=== PATIENT | female | born 1950 | race Caucasian/White ===

== ENCOUNTER 2016-12-26 05:34 | Inpatient (IN) | payer BC, MEDICARE ==
[2016-12-26] MEDS ORDERED: Scopolamine 1.5 MG Transdermal Patch TOP SCH (06:00)
[2016-12-26] MEDS ORDERED: Gabapentin 300 MG Cap PO ONE (06:00)
[2016-12-26] MEDS: Lactated Ringers 1,000 ML IV SCH (06:04)
[2016-12-26] MEDS ORDERED: Thrombin (Bovine) 5,000 Unit Kit ONE (06:58)
[2016-12-26] MEDS ORDERED: fentaNYL 250 MCG/5 ML SDV ONE ×2 (07:15→10:00)
[2016-12-26] MEDS ORDERED: Propofol 200 MG/20 ML SDV ONE ×4 (07:16→10:32)
[2016-12-26] MEDS ORDERED: Ondansetron 4 MG/2 ML SDV ONE (07:16)
[2016-12-26] MEDS ORDERED: Succinylcholine 200 MG/10 ML MDV ONE (07:16)
[2016-12-26] MEDS ORDERED: Rocuronium 50 MG/5 ML Vial ONE (07:16)
[2016-12-26] MEDS ORDERED: Dexamethasone 4 MG/ML SDV ONE (07:16)
[2016-12-26] MEDS ORDERED: Clindamycin Phosphate 900 MG in Sodium Chloride 0.9% 100 ML IV ONE (07:30)
[2016-12-26] MEDS ORDERED: Ropivacaine 49.25 ML, Ketorolac 30 MG, EPINEPHrine 0.5 MG, cloNIDine 80 MCG, Sodium Chl... INJECT ONE ×5 (07:45)
[2016-12-26] MEDS ORDERED: Ketamine 500 MG/5 ML MDV IV SCH (07:45)
[2016-12-26] MEDS: Tranexamic Acid 800 MG in Sodium Chloride 0.9% 50 ML IV SCH ×2 (07:49→11:48)
[2016-12-26] MEDS ORDERED: ePHEDrine 50 MG/ML SDV ONE (08:17)
[2016-12-26] MEDS ORDERED: Lactated Ringers 1,000 ML ONE (08:32)
[2016-12-26] MEDS ORDERED: Phenylephrine 1% 10 MG/ML SDV ONE (08:36)
[2016-12-26] MEDS: Povidone-Iodine 10% Soln 118.25 ML Bottle ONE ×2 (08:39→11:00)
[2016-12-26] MEDS ORDERED: Vancomycin 1 GM SDV ONE (10:55)
[2016-12-26] MEDS ORDERED: Glycopyrrolate 0.2 MG/ML 5 ML MDV ONE (11:00)
[2016-12-26] MEDS ORDERED: Neostigmine Methylsulfate 1 MG/ML 5 ML Syringe ONE (11:00)
[2016-12-26] MEDS ORDERED: Acetaminophen 1,000 MG in Premix Bag 1 BAG IV ONE ×2 (11:26→13:45)
[2016-12-26] MEDS ORDERED: Magnesium Hydroxide 400 MG/5 ML Susp 30 ML Cup PO PRN (11:26)
[2016-12-26] MEDS ORDERED: Diazepam 5 MG Tab PO PRN (11:26)
[2016-12-26] MEDS ORDERED: Ondansetron 4 MG/2 ML SDV IVPUSH PRN (11:26)
[2016-12-26] MEDS ORDERED: Zolpidem 5 MG Tab PO PRN (11:26)
[2016-12-26] MEDS ORDERED: Naloxone 0.4 MG/ML SDV IVPUSH PRN (11:26)
--- NOTE | 2016-12-26 12:35 | OR ---
DATE OF PROCEDURE: 12/26/2016 PREOPERATIVE DIAGNOSES: 1. Lumbar spondylolisthesis at L4-5. 2. Lumbar stenosis at L4-5. 3. Lumbar stenosis at L5-S1. 4. Lumbar radiculopathy at L4-5 and L5-S1. POSTOPERATIVE DIAGNOSES: 1. Lumbar spondylolisthesis at L4-5. 2. Lumbar stenosis at L4-5. 3. Lumbar stenosis at L5-S1. 4. Lumbar radiculopathy at L4-5 and L5-S1. PROCEDURES PERFORMED: 1. Posterolateral fusion at L4-L5. 2. Posterolateral fusion at L5-S1. 3. Segmental instrumentation at L4-5 and L5-S1. 4. Decompression done, required an additional fusion at L4-5 and L5-S1. 5. Use of Signify allograft in combination with autograft obtained from laminectomies and posterolateral gutter. 6. Use of operating microscope. CABLE DRILLER: CAMERON Fountain. Physician assistant education director, CAMERON Fountain, played an essential role in assisting in this case, helping to position the patient, retract structures as needed, as well as suturing and cutting sutures as indicated. Her presence improved patient's safety and decreased operative time. ANESTHESIA: General endotracheal intubation. FLUID: Lactated Ringer solution. ESTIMATED BLOOD LOSS: 50 mL. COMPLICATIONS: None. SPECIMEN: None. DISCHARGE DISPOSITION: Stable to PACU. HISTORY AND INDICATIONS FOR THE PROCEDURE: The patient was seen preoperatively by myself in the clinic. She had failed nonoperative treatment. Preoperative imaging confirmed the above-mentioned diagnosis. Risks and benefits of the procedure were explained to the patient. Informed consent was obtained. DESCRIPTION OF PROCEDURE: The patient was seen preoperatively by myself and the Anesthesia staff at the preoperative holding area, where the operative site was marked. She was brought to the operative suite by the Anesthesia staff, where general anesthesia was administered. Neuromonitoring leads were placed and normal throughout the case. Sterile Buckner catheter was placed. The operating microscope was draped sterilely. The patient was then flipped onto a David table. All extremities were found to be well padded. The bed was then flexed. The patient was then prepped and draped in a sterile manner. Time-out was called identifying the correct patient, the correct procedure, the correct site, and that the antibiotics had been begun within the appropriate period of time. Lateral fluoroscopy used to identify the pedicles of L4 through S1. A midline incision was made over the spinous processes of L3 through S1 and carried down to the deep fascia. Bleeding during the case was controlled with Bovie electrocautery, Aquamantys 5.0 unit, and bipolar electrocautery. Cerebellars were initially used for retraction. I then used Bovie electrocautery unit as well as a Reed elevator to go down over the spinous processes, lamina, transverse processes, and sacral ala of L4-S1. I then inserted Versa-Trac retractor blades for retraction. I then clipped the soft tissues off. I then drilled down the facets at L4-5 and L5-S1, and the superior facet of L4. I chose a starting part in the middle of the transverse process, starting on the right side. Used PediGuard and then pedicle probe, followed by tap, followed by pedicle probe, followed by screw, and then confirmed placement with fluoroscopy. This was done on the left and then the right. 6.5 x 50 mm screws were used at L4 and L5 and then at S1 they were 6.5 x 45 mm screws. After this was completed, I then was able to remove the lamina en bloc due to the pars defect at L4 and then I drilled down bilaterally on the lamina of L5 using a Clamshell technique. Unfortunately, I used a Reed elevator to crack the remaining portion of the lamina and bring it off, there were adhesions bilaterally from bone on to the dura causing large durotomies bilaterally. I then used the operating microscope and with many Greenfield-Ab sutures in both an interrupted and continuous manner, repaired the defects. We performed several Valsalva maneuvers to identify additional leaks, one of which was in the axilla of the left L5 nerve root. There was very little dura in some areas due to the adhesion to the bone and ligamentum flavum. However, I was able to finally perform a Valsalva with no cerebrospinal fluid leak. After this had been accomplished, I then copiously irrigated with 3 L of Betadine infused irrigation. We applied our Tulips to our screws and then placed 50 mm rods and then placed our set screws and torqued them in specifications. I then decorticated the left-side transverse process and sacral ala, and then used bone graft which had been run through a Emulate bone mill mixed with Signify allograft from [employer] and applied that in the posterolateral gutter. I had also performed facetectomies on the right at L4-5 and L5-S1 to completely decompress the nerve roots as that was the area where the patient was having right-sided pain. After this had been accomplished, I then irrigated again and I gently tamped the dura with a Ray-Lam and then applied DuraGen, followed by DuraSeal, followed by another Valsalva which was negative for any cerebrospinal fluid leak. We then applied some FloSeal, some vancomycin and Gelfoam powder, and then closed the deep fascia with #1 STRATAFIX, followed by injection with local anesthetic solution, followed by another liter of Betadine infused irrigation, followed by #2 STRATAFIX and then 3-0 STRATAFIX, followed by sterile dressing. The patient was then flipped into the hospital bed and taken to the PACU in a stable condition. Please note that we did test the screws after placement, the lowest one tested at 17, which was left L4; and the remainder were 25. Chidi Knowles DO /[id number]
[2016-12-26] MEDS: HYDROmorphone 1 MG/ML Syringe IVPUSH PRN ×2 (13:55→19:48)
[2016-12-26] MEDS: VERIFY SCOPOLAMINE PATCH TOP SCH (14:19)
[2016-12-26] MEDS: oxyCODONE 5 MG Tab PO PRN (16:09)
[2016-12-27] MEDS: Lactated Ringers 1,000 ML IV SCH (00:06)
[2016-12-27] MEDS: oxyCODONE 5 MG Tab PO PRN ×2 (00:06→08:56)
[2016-12-27] MEDS: Gabapentin 100 MG Cap PO SCH (08:17)
[2016-12-27] MEDS: VERIFY SCOPOLAMINE PATCH TOP SCH (08:17)
[2016-12-27] MEDS: GLUCOSAMINE SULFATE 750 MG PO SCH (08:17)
[2016-12-27] MEDS: Hydrochlorothiazide/Triamterene 25-37.5 MG Cap PO SCH ×2 (08:17→09:46)
[2016-12-27] MEDS: Pantoprazole 40 MG Tab.CR PO SCH (08:17)
[2016-12-27] MEDS: ZINC PO SCH (08:18)
[2016-12-27] MEDS: Lisinopril 2.5 MG Tab PO SCH (08:18)
[2016-12-27] MEDS: Cholecalciferol (Vitamin D3) 1,000 Unit Tab PO SCH (08:18)
[2016-12-27] MEDS: Vitamin B Complex Tab PO SCH (08:18)
[2016-12-27] MEDS ORDERED: Docusate Sodium Liquid 100 MG/10 ML UD Cup PO PRN (10:49)
[2016-12-27] MEDS: Polyethylene Glycol 3350 Powder 17 GM Packet PO SCH (11:31)
[2016-12-27] MEDS: Sennosides 8.6 MG Tab PO SCH ×2 (11:31→20:39)
[2016-12-27] MEDS: Acetaminophen/oxyCODONE 325-5 MG Tab PO PRN ×2 (11:35→18:07)
[2016-12-28] MEDS: Acetaminophen/oxyCODONE 325-5 MG Tab PO PRN ×4 (00:24→18:21)
[2016-12-28] MEDS: Pantoprazole 40 MG Tab.CR PO SCH (08:23)
[2016-12-28] MEDS: Bisacodyl 5 MG Tab PO SCH (08:23)
[2016-12-28] MEDS: Polyethylene Glycol 3350 Powder 17 GM Packet PO SCH (08:24)
[2016-12-28] MEDS: Gabapentin 100 MG Cap PO SCH (08:24)
[2016-12-28] MEDS: Hydrochlorothiazide/Triamterene 25-37.5 MG Cap PO SCH (08:24)
[2016-12-28] MEDS: Aspirin 81 MG Tab.EC PO SCH (08:24)
[2016-12-28] MEDS: GLUCOSAMINE SULFATE 750 MG PO SCH (08:24)
[2016-12-28] MEDS: Lisinopril 2.5 MG Tab PO SCH (08:25)
[2016-12-28] MEDS: Cholecalciferol (Vitamin D3) 1,000 Unit Tab PO SCH (08:25)
[2016-12-28] MEDS: Vitamin B Complex Tab PO SCH (08:25)
[2016-12-28] MEDS: Sennosides 8.6 MG Tab PO SCH ×2 (08:25→21:13)
[2016-12-28] MEDS: VERIFY SCOPOLAMINE PATCH TOP SCH (08:25)
[2016-12-28] MEDS: ZINC PO SCH (08:26)
--- NOTE | 2016-12-28 10:01 | PCM.PN ---
- General Info Date of Service: 12/27/16 Admission Dx/Problem (Free Text): Patient is status postop day 1. She is doing very well. Patient does state that she has headache when she sits up. She states it gets better when she lays down. She did have one episode of nausea last night but is improved. She states that she has no other issues at this time. Functional Status: Reports: Pain Controlled, Tolerating Diet, Ambulating, Urinating - Review of Systems General: Reports: No Symptoms - Patient Data Vitals - Most Recent: Last Vital Signs Temp 37.6 C 12/28/16 07:31 Pulse 97 12/28/16 07:31 Resp 16 12/28/16 07:31 BP 134/73 12/28/16 08:25 Pulse Ox 96 12/28/16 07:31 Weight - Most Recent: 179 lb 6.4 oz I&O - Last 24 Hours: Intake & Output 12/27/16 12/28/16 12/28/16 22:59 06:59 14:59 Intake Total 1140 700 Output Total 600 500 300 Balance 540 200 -300 Med Orders - Current: Current Medications Al Hydroxide/Mg Hydroxide (Mag-Al Plus) 30 ml PO Q4H PRN PRN Reason: Indigestion Aspirin (Halfprin) 81 mg PO DAILY [facility] Last Admin: 12/28/16 08:24 Dose: 81 mg Bisacodyl (Dulcolax) 5 mg PO DAILY [facility] Last Admin: 12/28/16 08:23 Dose: 5 mg Cholecalciferol (Vitamin D3) 1,000 units PO DAILY [facility] Last Admin: 12/28/16 08:25 Dose: 1,000 units Diazepam (Valium.) 5 mg PO Q6H PRN PRN Reason: Spasms Docusate Sodium (Colace 50 Mg/5 Ml Liquid) 100 mg PO BID PRN PRN Reason: Constipation Gabapentin (Neurontin) 100 mg PO DAILY [facility] Last Admin: 12/28/16 08:24 Dose: 100 mg Lactated Ringer's (Ringers, Lactated) 1,000 mls @ 100 mls/hr IV ASDIRECTED [facility] Last Admin: 12/27/16 00:06 Dose: 100 mls/hr Lisinopril (Prinivil) 2.5 mg PO DAILY [facility] Last Admin: 11/16/17 08:25 Dose: 2.5 mg Magnesium Hydroxide (Milk Of Magnesia) 30 ml PO BID PRN PRN Reason: Constipation Naloxone HCl (Narcan) 0.2 mg IVPUSH ONETIME PRN PRN Reason: Oversedation Glucosamine Sulfate (750 Mg (Ptom)) 0 mg PO DAILY [facility] Last Admin: 12/28/16 08:24 Dose: Not Given Zinc (Ptom) 1 tab PO DAILY [facility] Last Admin: 12/28/16 08:26 Dose: Not Given Verify Scopolamine (Patch) 0 each TOP DAILY [facility] Last Admin: 12/28/16 08:25 Dose: Not Given Ondansetron HCl (Zofran) 8 mg IVPUSH Q4H PRN PRN Reason: Nausea/Vomiting Last Admin: 12/27/16 08:56 Dose: 8 mg Oxycodone/Acetaminophen (Percocet 325-5 Mg) 2 tab PO Q4H PRN PRN Reason: Pain Last Admin: 12/28/16 07:28 Dose: 2 tab Pantoprazole Sodium (Protonix) 40 mg PO ACBREAKFAST [facility] Last Admin: 12/28/16 08:23 Dose: 40 mg Polyethylene Glycol (Miralax) 17 gm PO DAILY [facility] Last Admin: 12/28/16 08:24 Dose: 17 gm Scopolamine (Transderm-Scop) 1.5 mg TOP Q72H [facility] Stop: 12/29/16 04:00 Last Admin: 12/26/16 06:04 Dose: 1.5 mg Senna (Senna) 8.6 mg PO BID PRN PRN Reason: Constipation Senna (Senna) 8.6 mg PO BID [facility] Last Admin: 12/28/16 08:25 Dose: 8.6 mg Triamterene/HCTZ (Dyazide 25-37.5 Mg) 1 each PO DAILY [facility] Last Admin: 12/28/16 08:24 Dose: 1 each Vitamin B Complex (Vitamin B Complex) 1 each PO DAILY [facility] Last Admin: 12/28/16 08:25 Dose: 1 each Zolpidem Tartrate (Ambien) 5 mg PO BEDTIME PRN PRN Reason: Sleep Discontinued Medications Ropivacaine 49.25 ml/Ketorolac Tromethamine 30 mg/Epinephrine HCl 0.5 mg/ Clonidine HCl 80 mcg/ Sodium Chloride 48.45 ml 0 ml INJECT ONETIME ONE Stop: 12/26/16 07:46 Last Admin: 12/26/16 10:02 Dose: 100 ml Dexamethasone (Dexamethasone) Confirm Administered Dose 4 mg .ROUTE .STK-MED ONE Stop: 12/26/16 07:17 Ephedrine Sulfate (Ephedrine Sulfate) Confirm Administered Dose 50 mg .ROUTE .STK-MED ONE Stop: 12/26/16 08:18 Fentanyl (Sublimaze) Confirm Administered Dose 250 mcg .ROUTE .STK-MED ONE Stop: 12/26/16 07:16 Fentanyl (Sublimaze) Confirm Administered Dose 250 mcg .ROUTE .STK-MED ONE Stop: 12/26/16 10:01 Gabapentin (Neurontin) 300 mg PO ONETIME ONE Stop: 12/26/16 06:01 Last Admin: 12/26/16 06:03 Dose: 300 mg Glycopyrrolate (Robinul) Confirm Administered Dose 1 mg .ROUTE .STK-MED ONE Stop: 12/26/16 11:01 Hydromorphone HCl (Dilaudid) 1 mg IVPUSH Q2H PRN PRN Reason: Pain Stop: 12/27/16 11:27 Last Admin: 12/26/16 19:48 Dose: 1 mg Clindamycin Phosphate 900 mg/ (Sodium Chloride) 106 mls @ 200 mls/hr IV ONETIME ONE Stop: 12/26/16 08:01 Last Admin: 12/26/16 07:27 Dose: 200 mls/hr Tranexamic Acid 800 mg/ Sodium (Chloride) 58 mls @ 232 mls/hr IV Q3H [facility] Stop: 12/26/16 10:59 Last Admin: 12/26/16 11:48 Dose: 232 mls/hr Ketamine HCl 100 mg/ Sodium (Chloride) 100 mls @ 14 mls/hr IV ASDIRECTED [facility] Lactated Ringer's (Ringers, Lactated) Confirm Administered Dose 1,000 mls @ as directed .ROUTE .STK-MED ONE Stop: 12/26/16 08:33 Acetaminophen 1,000 mg/ Premix 100 mls @ 400 mls/hr IV NOW ONE Stop: 12/26/16 11:40 Last Admin: 12/26/16 14:18 Dose: Not Given Clindamycin Phosphate 600 mg/ (Sodium Chloride) 54 mls @ 100 mls/hr IV Q8H [facility] Stop: 12/27/16 04:03 Last Admin: 12/26/16 14:18 Dose: Not Given Clindamycin Phosphate 600 mg/ (Sodium Chloride) 54 mls @ 100 mls/hr IV Q8H [facility] Stop: 12/27/16 06:33 Last Admin: 12/27/16 05:36 Dose: 100 mls/hr Acetaminophen 1,000 mg/ Premix 100 mls @ 400 mls/hr IV NOW ONE Stop: 12/26/16 13:59 Last Admin: 12/26/16 14:19 Dose: 400 mls/hr Ketamine HCl (Ketalar) 23 mg IV ASDIRECTED [facility] Neostigmine Methylsulfate (Neostigmine) Confirm Administered Dose 5 mg .ROUTE .STK-MED ONE Stop: 12/26/16 11:01 Ondansetron HCl (Zofran) Confirm Administered Dose 4 mg .ROUTE .STK-MED ONE Stop: 12/26/16 07:17 Oxycodone HCl (Oxycodone) 10 mg PO Q4H PRN PRN Reason: Pain Stop: 12/27/16 11:27 Last Admin: 12/27/16 08:56 Dose: 10 mg Phenylephrine HCl (Lon-Synephrine) Confirm Administered Dose 10 mg .ROUTE .STK- MED ONE Stop: 12/26/16 08:37 Povidone Iodine (Betadine 10% Soln) Confirm Administered Dose 1 ml .ROUTE .STK- MED ONE Stop: 12/26/16 06:59 Last Admin: 12/26/16 11:00 Dose: 30 ml Propofol (Diprivan 20 Ml) Confirm Administered Dose 200 mg .ROUTE .STK-MED ONE Stop: 12/26/16 07:17 Propofol (Diprivan 20 Ml) Confirm Administered Dose 400 mg .ROUTE .STK-MED ONE Stop: 12/26/16 07:49 Propofol (Diprivan 20 Ml) Confirm Administered Dose 200 mg .ROUTE .STK-MED ONE Stop: 12/26/16 09:32 Propofol (Diprivan 20 Ml) Confirm Administered Dose 200 mg .ROUTE .STK-MED ONE Stop: 12/26/16 10:33 Rocuronium [place] (Zemuron) Confirm Administered Dose 50 mg .ROUTE .STK-MED ONE Stop: 12/26/16 07:17 Sodium Chloride (Normal Saline) 250 ml IV .STK-MED ONE Stop: 12/26/16 08:21 Last Admin: 12/26/16 08:20 Dose: 250 ml Succinylcholine Chloride (Quelicin) Confirm Administered Dose 200 mg .ROUTE .STK -MED ONE Stop: 12/26/16 07:17 Thrombin (Thrombin-Jmi) Confirm Administered Dose 15,000 unit .ROUTE .STK-MED ONE Stop: 12/26/16 06:59 Last Admin: 12/26/16 08:38 Dose: 10,000 unit Vancomycin HCl (Vancomycin) Confirm Administered Dose 1 gm .ROUTE .STK-MED ONE Stop: 12/26/16 10:56 Last Admin: 12/26/16 11:00 Dose: 1 gm - Exam General: Alert, Oriented Back Exam: Normal Inspection Extremities: Normal Inspection, No Pedal Edema, Normal Capillary Refill Peripheral Pulses: 2+: Dorsalis Pedis (L), Dorsalis Pedis (R) Skin: Warm, Dry, Intact Wound/Incisions: Healing Well, Dressing Dry and Intact Neurological: No New Focal Deficit, Strength Equal Bilateral, Reflexes Equal Bilateral Psy/Mental Status: Alert - Problem List Review Problem List Initiated/Reviewed/Updated: Yes - My Orders Last 24 Hours: My Active Orders 12/27/16 09:00 Cholecalciferol (Vitamin D3) [Vitamin D3] 1,000 units PO DAILY Gabapentin [Neurontin] 100 mg PO DAILY Glucosamine Sulfate [Glucosamine Sulfate] 0 mg PO DAILY HCTZ/Triamterene [Dyazide 25-37.5 MG] 1 each PO DAILY Lisinopril [Prinivil] 2.5 mg PO DAILY Vitamin B Complex 1 each PO DAILY Zinc [Zinc] 1 tab PO DAILY 12/27/16 10:49 Docusate Sodium [Colace 50 MG/5 ML Liquid] 100 mg PO BID PRN 12/27/16 11:00 Polyethylene Glycol 3350 [MiraLAX] 17 gm PO DAILY Sennosides [Senna] 8.6 mg PO BID 12/27/16 11:27 Acetaminophen/oxyCODONE [Percocet 325-5 MG] 2 tab PO Q4H PRN 12/28/16 09:00 Aspirin [Halfprin] 81 mg PO DAILY Bisacodyl [Dulcolax] 5 mg PO DAILY 12/31/16 05:15 BASIC METABOLIC PANEL,BMP [CHEM] DAILY CBC WITH AUTO DIFF [HEME] DAILY 01/01/17 05:15 BASIC METABOLIC PANEL,BMP [CHEM] DAILY CBC WITH AUTO DIFF [HEME] DAILY 01/02/17 05:15 BASIC METABOLIC PANEL,BMP [CHEM] DAILY CBC WITH AUTO DIFF [HEME] DAILY 01/03/17 05:15 BASIC METABOLIC PANEL,BMP [CHEM] DAILY CBC WITH AUTO DIFF [HEME] DAILY 01/04/17 05:15 BASIC METABOLIC PANEL,BMP [CHEM] DAILY CBC WITH AUTO DIFF [HEME] DAILY - Plan Plan:: At this time we will continue to monitor the patient's headaches. We want her lying flat. She can do PT but we do not want her sitting up in a chair at this time. We want to increase her fluids. He want to make sure that she has a bowel regimen so she does not strain. Patient was in agreement with this plan.
--- NOTE | 2016-12-28 10:02 | PCM.PN ---
- General Info Date of Service: 12/28/16 Admission Dx/Problem (Free Text): Patient is status postop day 3 of a lumbar fusion. She is doing very well. Patient continues to have slight headaches when she does stand up and ambulate. Otherwise she is having no other issues. She is tolerating her diet better. Pain is under control with oral pain medication at this time. Functional Status: Reports: Pain Controlled, Tolerating Diet, Ambulating - Patient Data Vitals - Most Recent: Last Vital Signs Temp 37.6 C 12/28/16 07:31 Pulse 97 12/28/16 07:31 Resp 16 12/28/16 07:31 BP 134/73 12/28/16 08:25 Pulse Ox 96 12/28/16 07:31 Weight - Most Recent: 179 lb 6.4 oz I&O - Last 24 Hours: Intake & Output 12/27/16 12/28/16 12/28/16 22:59 06:59 14:59 Intake Total 1140 700 Output Total 600 500 300 Balance 540 200 -300 Med Orders - Current: Current Medications Al Hydroxide/Mg Hydroxide (Mag-Al Plus) 30 ml PO Q4H PRN PRN Reason: Indigestion Aspirin (Halfprin) 81 mg PO DAILY [facility] Last Admin: 12/28/16 08:24 Dose: 81 mg Bisacodyl (Dulcolax) 5 mg PO DAILY [facility] Last Admin: 12/28/16 08:23 Dose: 5 mg Cholecalciferol (Vitamin D3) 1,000 units PO DAILY [facility] Last Admin: 12/28/16 08:25 Dose: 1,000 units Diazepam (Valium.) 5 mg PO Q6H PRN PRN Reason: Spasms Docusate Sodium (Colace 50 Mg/5 Ml Liquid) 100 mg PO BID PRN PRN Reason: Constipation Gabapentin (Neurontin) 100 mg PO DAILY [facility] Last Admin: 12/28/16 08:24 Dose: 100 mg Lactated Ringer's (Ringers, Lactated) 1,000 mls @ 100 mls/hr IV ASDIRECTED [facility] Last Admin: 12/27/16 00:06 Dose: 100 mls/hr Lisinopril (Prinivil) 2.5 mg PO DAILY [facility] Last Admin: 12/28/16 08:25 Dose: 2.5 mg Magnesium Hydroxide (Milk Of Magnesia) 30 ml PO BID PRN PRN Reason: Constipation Naloxone HCl (Narcan) 0.2 mg IVPUSH ONETIME PRN PRN Reason: Oversedation Glucosamine Sulfate (750 Mg (Ptom)) 0 mg PO DAILY [facility] Last Admin: 12/28/16 08:24 Dose: Not Given Zinc (Ptom) 1 tab PO DAILY [facility] Last Admin: 12/28/16 08:26 Dose: Not Given Verify Scopolamine (Patch) 0 each TOP DAILY [facility] Last Admin: 12/28/16 08:25 Dose: Not Given Ondansetron HCl (Zofran) 8 mg IVPUSH Q4H PRN PRN Reason: Nausea/Vomiting Last Admin: 12/27/16 08:56 Dose: 8 mg Oxycodone/Acetaminophen (Percocet 325-5 Mg) 2 tab PO Q4H PRN PRN Reason: Pain Last Admin: 12/28/16 07:28 Dose: 2 tab Pantoprazole Sodium (Protonix) 40 mg PO ACBREAKFAST [facility] Last Admin: 12/28/16 08:23 Dose: 40 mg Polyethylene Glycol (Miralax) 17 gm PO DAILY [facility] Last Admin: 12/28/16 08:24 Dose: 17 gm Scopolamine (Transderm-Scop) 1.5 mg TOP Q72H [facility] Stop: 12/29/16 04:00 Last Admin: 12/26/16 06:04 Dose: 1.5 mg Senna (Senna) 8.6 mg PO BID PRN PRN Reason: Constipation Senna (Senna) 8.6 mg PO BID [facility] Last Admin: 12/28/16 08:25 Dose: 8.6 mg Triamterene/HCTZ (Dyazide 25-37.5 Mg) 1 each PO DAILY [facility] Last Admin: 12/28/16 08:24 Dose: 1 each Vitamin B Complex (Vitamin B Complex) 1 each PO DAILY [facility] Last Admin: 12/28/16 08:25 Dose: 1 each Zolpidem Tartrate (Ambien) 5 mg PO BEDTIME PRN PRN Reason: Sleep Discontinued Medications Ropivacaine 49.25 ml/Ketorolac Tromethamine 30 mg/Epinephrine HCl 0.5 mg/ Clonidine HCl 80 mcg/ Sodium Chloride 48.45 ml 0 ml INJECT ONETIME ONE Stop: 12/26/16 07:46 Last Admin: 12/26/16 10:02 Dose: 100 ml Dexamethasone (Dexamethasone) Confirm Administered Dose 4 mg .ROUTE .STK-MED ONE Stop: 12/26/16 07:17 Ephedrine Sulfate (Ephedrine Sulfate) Confirm Administered Dose 50 mg .ROUTE .STK-MED ONE Stop: 12/26/16 08:18 Fentanyl (Sublimaze) Confirm Administered Dose 250 mcg .ROUTE .STK-MED ONE Stop: 12/26/16 07:16 Fentanyl (Sublimaze) Confirm Administered Dose 250 mcg .ROUTE .STK-MED ONE Stop: 12/26/16 10:01 Gabapentin (Neurontin) 300 mg PO ONETIME ONE Stop: 12/26/16 06:01 Last Admin: 12/26/16 06:03 Dose: 300 mg Glycopyrrolate (Robinul) Confirm Administered Dose 1 mg .ROUTE .STK-MED ONE Stop: 12/26/16 11:01 Hydromorphone HCl (Dilaudid) 1 mg IVPUSH Q2H PRN PRN Reason: Pain Stop: 12/27/16 11:27 Last Admin: 12/26/16 19:48 Dose: 1 mg Clindamycin Phosphate 900 mg/ (Sodium Chloride) 106 mls @ 200 mls/hr IV ONETIME ONE Stop: 12/26/16 08:01 Last Admin: 12/26/16 07:27 Dose: 200 mls/hr Tranexamic Acid 800 mg/ Sodium (Chloride) 58 mls @ 232 mls/hr IV Q3H [facility] Stop: 12/26/16 10:59 Last Admin: 12/26/16 11:48 Dose: 232 mls/hr Ketamine HCl 100 mg/ Sodium (Chloride) 100 mls @ 14 mls/hr IV ASDIRECTED [facility] Lactated Ringer's (Ringers, Lactated) Confirm Administered Dose 1,000 mls @ as directed .ROUTE .STK-MED ONE Stop: 12/26/16 08:33 Acetaminophen 1,000 mg/ Premix 100 mls @ 400 mls/hr IV NOW ONE Stop: 12/26/16 11:40 Last Admin: 12/26/16 14:18 Dose: Not Given Clindamycin Phosphate 600 mg/ (Sodium Chloride) 54 mls @ 100 mls/hr IV Q8H [facility] Stop: 12/27/16 04:03 Last Admin: 12/26/16 14:18 Dose: Not Given Clindamycin Phosphate 600 mg/ (Sodium Chloride) 54 mls @ 100 mls/hr IV Q8H [facility] Stop: 12/27/16 06:33 Last Admin: 12/27/16 05:36 Dose: 100 mls/hr Acetaminophen 1,000 mg/ Premix 100 mls @ 400 mls/hr IV NOW ONE Stop: 12/26/16 13:59 Last Admin: 12/26/16 14:19 Dose: 400 mls/hr Ketamine HCl (Ketalar) 23 mg IV ASDIRECTED [facility] Neostigmine Methylsulfate (Neostigmine) Confirm Administered Dose 5 mg .ROUTE .STK-MED ONE Stop: 12/26/16 11:01 Ondansetron HCl (Zofran) Confirm Administered Dose 4 mg .ROUTE .STK-MED ONE Stop: 12/26/16 07:17 Oxycodone HCl (Oxycodone) 10 mg PO Q4H PRN PRN Reason: Pain Stop: 12/27/16 11:27 Last Admin: 12/27/16 08:56 Dose: 10 mg Phenylephrine HCl (Lon-Synephrine) Confirm Administered Dose 10 mg .ROUTE .STK- MED ONE Stop: 12/26/16 08:37 Povidone Iodine (Betadine 10% Soln) Confirm Administered Dose 1 ml .ROUTE .STK- MED ONE Stop: 12/26/16 06:59 Last Admin: 12/26/16 11:00 Dose: 30 ml Propofol (Diprivan 20 Ml) Confirm Administered Dose 200 mg .ROUTE .STK-MED ONE Stop: 12/26/16 07:17 Propofol (Diprivan 20 Ml) Confirm Administered Dose 400 mg .ROUTE .STK-MED ONE Stop: 12/26/16 07:49 Propofol (Diprivan 20 Ml) Confirm Administered Dose 200 mg .ROUTE .STK-MED ONE Stop: 12/26/16 09:32 Propofol (Diprivan 20 Ml) Confirm Administered Dose 200 mg .ROUTE .STK-MED ONE Stop: 12/26/16 10:33 Rocuronium [place] (Zemuron) Confirm Administered Dose 50 mg .ROUTE .STK-MED ONE Stop: 12/26/16 07:17 Sodium Chloride (Normal Saline) 250 ml IV .STK-MED ONE Stop: 12/26/16 08:21 Last Admin: 12/26/16 08:20 Dose: 250 ml Succinylcholine Chloride (Quelicin) Confirm Administered Dose 200 mg .ROUTE .STK -MED ONE Stop: 12/26/16 07:17 Thrombin (Thrombin-Jmi) Confirm Administered Dose 15,000 unit .ROUTE .STK-MED ONE Stop: 12/26/16 06:59 Last Admin: 12/26/16 08:38 Dose: 10,000 unit Vancomycin HCl (Vancomycin) Confirm Administered Dose 1 gm .ROUTE .STK-MED ONE Stop: 12/26/16 10:56 Last Admin: 12/26/16 11:00 Dose: 1 gm - Exam General: Alert, Oriented Back Exam: Normal Inspection Extremities: Normal Inspection, Normal Range of Motion, No Pedal Edema, Normal Capillary Refill Peripheral Pulses: 2+: Dorsalis Pedis (L), Dorsalis Pedis (R) Skin: Warm, Dry, Intact Wound/Incisions: Healing Well, Dressing Dry and Intact Neurological: No New Focal Deficit, Strength Equal Bilateral, Reflexes Equal Bilateral Psy/Mental Status: Alert - Problem List Review Problem List Initiated/Reviewed/Updated: Yes - My Orders Last 24 Hours: My Active Orders 12/27/16 10:49 Docusate Sodium [Colace 50 MG/5 ML Liquid] 100 mg PO BID PRN 12/27/16 11:00 Polyethylene Glycol 3350 [MiraLAX] 17 gm PO DAILY Sennosides [Senna] 8.6 mg PO BID 12/27/16 11:27 Acetaminophen/oxyCODONE [Percocet 325-5 MG] 2 tab PO Q4H PRN 12/28/16 09:00 Aspirin [Halfprin] 81 mg PO DAILY Bisacodyl [Dulcolax] 5 mg PO DAILY 12/31/16 05:15 BASIC METABOLIC PANEL,BMP [CHEM] DAILY CBC WITH AUTO DIFF [HEME] DAILY 01/01/17 05:15 BASIC METABOLIC PANEL,BMP [CHEM] DAILY CBC WITH AUTO DIFF [HEME] DAILY 01/02/17 05:15 BASIC METABOLIC PANEL,BMP [CHEM] DAILY CBC WITH AUTO DIFF [HEME] DAILY 01/03/17 05:15 BASIC METABOLIC PANEL,BMP [CHEM] DAILY CBC WITH AUTO DIFF [HEME] DAILY 01/04/17 05:15 BASIC METABOLIC PANEL,BMP [CHEM] DAILY CBC WITH AUTO DIFF [HEME] DAILY - Plan Plan:: A at this time with her continued headaches we are going to put her on bedrest. We want of a Buckner catheter placed in for her to be on bedrest for 2 days. She is to put her head of the bed up no more than 20. We will continue with Percocet for oral pain medication.
[2016-12-29] MEDS: Acetaminophen/oxyCODONE 325-5 MG Tab PO PRN ×5 (02:23→22:34)
[2016-12-29] MEDS: Pantoprazole 40 MG Tab.CR PO SCH (07:41)
[2016-12-29] MEDS: Aluminum Hydroxide/Magnesium Hydroxide/Simethicone Susp 30 ML Cup PO PRN (07:52)
--- NOTE | 2016-12-29 08:49 | PCM.PN ---
- General Info Date of Service: 12/29/16 Admission Dx/Problem (Free Text): Carmen is status postop day 3 of a lumbar fusion. She is doing very well. We continue to keep her bedrest at this time patient denies any headaches. Pain is under control with oral pain medication. We continue to have PT OT on hold until she becomes non-bedrest Functional Status: Reports: Pain Controlled, Tolerating Diet, Urinating - Review of Systems General: Reports: No Symptoms - Patient Data Vitals - Most Recent: Last Vital Signs Temp 36.9 C 12/29/16 07:21 Pulse 86 12/29/16 07:21 Resp 16 12/29/16 07:21 BP 123/73 12/29/16 07:21 Pulse Ox 96 12/29/16 07:21 Weight - Most Recent: 179 lb 6.383 oz I&O - Last 24 Hours: Intake & Output 12/28/16 12/29/16 12/29/16 22:59 06:59 14:59 Intake Total 1300 Output Total 2550 1650 Balance -1250 -1650 Med Orders - Current: Current Medications Al Hydroxide/Mg Hydroxide (Mag-Al Plus) 30 ml PO Q4H PRN PRN Reason: Indigestion Last Admin: 12/29/16 07:52 Dose: 30 ml Aspirin (Halfprin) 81 mg PO DAILY [facility] Last Admin: 12/28/16 08:24 Dose: 81 mg Bisacodyl (Dulcolax) 5 mg PO DAILY [facility] Last Admin: 12/28/16 08:23 Dose: 5 mg Cholecalciferol (Vitamin D3) 1,000 units PO DAILY [facility] Last Admin: 12/28/16 08:25 Dose: 1,000 units Diazepam (Valium.) 5 mg PO Q6H PRN PRN Reason: Spasms Docusate Sodium (Colace 50 Mg/5 Ml Liquid) 100 mg PO BID PRN PRN Reason: Constipation Gabapentin (Neurontin) 100 mg PO DAILY [facility] Last Admin: 12/28/16 08:24 Dose: 100 mg Lactated Ringer's (Ringers, Lactated) 1,000 mls @ 100 mls/hr IV ASDIRECTED [facility] Last Admin: 12/27/16 00:06 Dose: 100 mls/hr Lisinopril (Prinivil) 2.5 mg PO DAILY [facility] Last Admin: 12/28/16 08:25 Dose: 2.5 mg Magnesium Hydroxide (Milk Of Magnesia) 30 ml PO BID PRN PRN Reason: Constipation Naloxone HCl (Narcan) 0.2 mg IVPUSH ONETIME PRN PRN Reason: Oversedation Glucosamine Sulfate (750 Mg (Ptom)) 0 mg PO DAILY [facility] Last Admin: 12/28/16 08:24 Dose: Not Given Zinc (Ptom) 1 tab PO DAILY [facility] Last Admin: 12/28/16 08:26 Dose: Not Given Verify Scopolamine (Patch) 0 each TOP DAILY [facility] Last Admin: 12/28/16 08:25 Dose: Not Given Ondansetron HCl (Zofran) 8 mg IVPUSH Q4H PRN PRN Reason: Nausea/Vomiting Last Admin: 12/27/16 08:56 Dose: 8 mg Oxycodone/Acetaminophen (Percocet 325-5 Mg) 2 tab PO Q4H PRN PRN Reason: Pain Last Admin: 12/29/16 02:23 Dose: 2 tab Pantoprazole Sodium (Protonix) 40 mg PO ACBREAKFAST [facility] Last Admin: 12/29/16 07:41 Dose: 40 mg Polyethylene Glycol (Miralax) 17 gm PO DAILY [facility] Last Admin: 12/28/16 08:24 Dose: 17 gm Senna (Senna) 8.6 mg PO BID PRN PRN Reason: Constipation Senna (Senna) 8.6 mg PO BID [facility] Last Admin: 12/28/16 21:13 Dose: 8.6 mg Triamterene/HCTZ (Dyazide 25-37.5 Mg) 1 each PO DAILY [facility] Last Admin: 12/28/16 08:24 Dose: 1 each Vitamin B Complex (Vitamin B Complex) 1 each PO DAILY [facility] Last Admin: 12/28/16 08:25 Dose: 1 each Zolpidem Tartrate (Ambien) 5 mg PO BEDTIME PRN PRN Reason: Sleep Discontinued Medications Ropivacaine 49.25 ml/Ketorolac Tromethamine 30 mg/Epinephrine HCl 0.5 mg/ Clonidine HCl 80 mcg/ Sodium Chloride 48.45 ml 0 ml INJECT ONETIME ONE Stop: 12/26/16 07:46 Last Admin: 12/26/16 10:02 Dose: 100 ml Dexamethasone (Dexamethasone) Confirm Administered Dose 4 mg .ROUTE .[facility]-MED ONE Stop: 12/26/16 07:17 Ephedrine Sulfate (Ephedrine Sulfate) Confirm Administered Dose 50 mg .ROUTE .STK-MED ONE Stop: 12/26/16 08:18 Fentanyl (Sublimaze) Confirm Administered Dose 250 mcg .ROUTE .STK-MED ONE Stop: 12/26/16 07:16 Fentanyl (Sublimaze) Confirm Administered Dose 250 mcg .ROUTE .STK-MED ONE Stop: 12/26/16 10:01 Gabapentin (Neurontin) 300 mg PO ONETIME ONE Stop: 12/26/16 06:01 Last Admin: 12/26/16 06:03 Dose: 300 mg Glycopyrrolate (Robinul) Confirm Administered Dose 1 mg .ROUTE .STK-MED ONE Stop: 12/26/16 11:01 Hydromorphone HCl (Dilaudid) 1 mg IVPUSH Q2H PRN PRN Reason: Pain Stop: 12/27/16 11:27 Last Admin: 12/26/16 19:48 Dose: 1 mg Clindamycin Phosphate 900 mg/ (Sodium Chloride) 106 mls @ 200 mls/hr IV ONETIME ONE Stop: 12/26/16 08:01 Last Admin: 12/26/16 07:27 Dose: 200 mls/hr Tranexamic Acid 800 mg/ Sodium (Chloride) 58 mls @ 232 mls/hr IV Q3H [facility] Stop: 12/26/16 10:59 Last Admin: 12/26/16 11:48 Dose: 232 mls/hr Ketamine HCl 100 mg/ Sodium (Chloride) 100 mls @ 14 mls/hr IV ASDIRECTED [facility] Lactated Ringer's (Ringers, Lactated) Confirm Administered Dose 1,000 mls @ as directed .ROUTE .STK-MED ONE Stop: 12/26/16 08:33 Acetaminophen 1,000 mg/ Premix 100 mls @ 400 mls/hr IV NOW ONE Stop: 12/26/16 11:40 Last Admin: 12/26/16 14:18 Dose: Not Given Clindamycin Phosphate 600 mg/ (Sodium Chloride) 54 mls @ 100 mls/hr IV Q8H [facility] Stop: 12/27/16 04:03 Last Admin: 12/26/16 14:18 Dose: Not Given Clindamycin Phosphate 600 mg/ (Sodium Chloride) 54 mls @ 100 mls/hr IV Q8H [facility] Stop: 12/27/16 06:33 Last Admin: 12/27/16 05:36 Dose: 100 mls/hr Acetaminophen 1,000 mg/ Premix 100 mls @ 400 mls/hr IV NOW ONE Stop: 12/26/16 13:59 Last Admin: 12/26/16 14:19 Dose: 400 mls/hr Ketamine HCl (Ketalar) 23 mg IV ASDIRECTED [facility] Neostigmine Methylsulfate (Neostigmine) Confirm Administered Dose 5 mg .ROUTE .STK-MED ONE Stop: 12/26/16 11:01 Ondansetron HCl (Zofran) Confirm Administered Dose 4 mg .ROUTE .STK-MED ONE Stop: 12/26/16 07:17 Oxycodone HCl (Oxycodone) 10 mg PO Q4H PRN PRN Reason: Pain Stop: 12/27/16 11:27 Last Admin: 12/27/16 08:56 Dose: 10 mg Phenylephrine HCl (Lon-Synephrine) Confirm Administered Dose 10 mg .ROUTE .STK- MED ONE Stop: 12/26/16 08:37 Povidone Iodine (Betadine 10% Soln) Confirm Administered Dose 1 ml .ROUTE .STK- MED ONE Stop: 12/26/16 06:59 Last Admin: 12/26/16 11:00 Dose: 30 ml Propofol (Diprivan 20 Ml) Confirm Administered Dose 200 mg .ROUTE .STK-MED ONE Stop: 12/26/16 07:17 Propofol (Diprivan 20 Ml) Confirm Administered Dose 400 mg .ROUTE .STK-MED ONE Stop: 12/26/16 07:49 Propofol (Diprivan 20 Ml) Confirm Administered Dose 200 mg .ROUTE .STK-MED ONE Stop: 12/26/16 09:32 Propofol (Diprivan 20 Ml) Confirm Administered Dose 200 mg .ROUTE .STK-MED ONE Stop: 12/26/16 10:33 Rocuronium [place] (Zemuron) Confirm Administered Dose 50 mg .ROUTE .STK-MED ONE Stop: 12/26/16 07:17 Scopolamine (Transderm-Scop) 1.5 mg TOP Q72H [facility] Stop: 12/29/16 04:00 Last Admin: 12/26/16 06:04 Dose: 1.5 mg Sodium Chloride (Normal Saline) 250 ml IV .STK-MED ONE Stop: 12/26/16 08:21 Last Admin: 12/26/16 08:20 Dose: 250 ml Succinylcholine Chloride (Quelicin) Confirm Administered Dose 200 mg .ROUTE .STK -MED ONE Stop: 12/26/16 07:17 Thrombin (Thrombin-Jmi) Confirm Administered Dose 15,000 unit .ROUTE .STK-MED ONE Stop: 12/26/16 06:59 Last Admin: 12/26/16 08:38 Dose: 10,000 unit Vancomycin HCl (Vancomycin) Confirm Administered Dose 1 gm .ROUTE .STK-MED ONE Stop: 12/26/16 10:56 Last Admin: 12/26/16 11:00 Dose: 1 gm - Exam General: Alert, Oriented Back Exam: Normal Inspection, Full Range of Motion Extremities: Normal Inspection, Normal Range of Motion, No Pedal Edema, Normal Capillary Refill Peripheral Pulses: 2+: Dorsalis Pedis (L), Dorsalis Pedis (R) Skin: Warm, Dry, Intact Wound/Incisions: Healing Well, Dressing Dry and Intact Neurological: No New Focal Deficit, Normal Gait - Problem List Review Problem List Initiated/Reviewed/Updated: Yes - My Orders Last 24 Hours: My Active Orders 12/28/16 09:00 Aspirin [Halfprin] 81 mg PO DAILY Bisacodyl [Dulcolax] 5 mg PO DAILY 12/31/16 05:15 BASIC METABOLIC PANEL,BMP [CHEM] DAILY CBC WITH AUTO DIFF [HEME] DAILY 01/01/17 05:15 BASIC METABOLIC PANEL,BMP [CHEM] DAILY CBC WITH AUTO DIFF [HEME] DAILY 01/02/17 05:15 BASIC METABOLIC PANEL,BMP [CHEM] DAILY CBC WITH AUTO DIFF [HEME] DAILY 01/03/17 05:15 BASIC METABOLIC PANEL,BMP [CHEM] DAILY CBC WITH AUTO DIFF [HEME] DAILY 01/04/17 05:15 BASIC METABOLIC PANEL,BMP [CHEM] DAILY CBC WITH AUTO DIFF [HEME] DAILY - Plan Plan:: Patient will maintain bedrest until tomorrow for further assessment. We will see how she is doing at that time.
[2016-12-29] MEDS: Vitamin B Complex Tab PO SCH (08:55)
[2016-12-29] MEDS: Hydrochlorothiazide/Triamterene 25-37.5 MG Cap PO SCH (08:55)
[2016-12-29] MEDS: Cholecalciferol (Vitamin D3) 1,000 Unit Tab PO SCH (08:55)
[2016-12-29] MEDS: Lisinopril 2.5 MG Tab PO SCH (08:55)
[2016-12-29] MEDS: Polyethylene Glycol 3350 Powder 17 GM Packet PO SCH (08:55)
[2016-12-29] MEDS: Gabapentin 100 MG Cap PO SCH (08:55)
[2016-12-29] MEDS: Aspirin 81 MG Tab.EC PO SCH (08:55)
[2016-12-29] MEDS: Bisacodyl 5 MG Tab PO SCH (08:55)
[2016-12-29] MEDS: VERIFY SCOPOLAMINE PATCH TOP SCH (08:57)
[2016-12-29] MEDS: GLUCOSAMINE SULFATE 750 MG PO SCH (08:57)
[2016-12-29] MEDS: ZINC PO SCH (08:58)
[2016-12-29] MEDS: Sennosides 8.6 MG Tab PO SCH ×2 (08:58→22:35)
[2016-12-29] MEDS ORDERED: Levofloxacin/Dextrose 5%-Water 750 MG in Premix Bag 1 BAG IV SCH (16:30)
[2016-12-29] MEDS: Sennosides 8.6 MG Tab PO PRN (21:59)
[2016-12-30] MEDS: Pantoprazole 40 MG Tab.CR PO SCH (07:13)
[2016-12-30] MEDS: Acetaminophen/oxyCODONE 325-5 MG Tab PO PRN ×3 (07:40→19:32)
[2016-12-30] MEDS: Polyethylene Glycol 3350 Powder 17 GM Packet PO SCH (09:24)
[2016-12-30] MEDS: Sennosides 8.6 MG Tab PO PRN (09:25)
[2016-12-30] MEDS: Vitamin B Complex Tab PO SCH (09:25)
[2016-12-30] MEDS: Lisinopril 2.5 MG Tab PO SCH (09:25)
[2016-12-30] MEDS: Bisacodyl 5 MG Tab PO SCH (09:25)
[2016-12-30] MEDS: Aspirin 81 MG Tab.EC PO SCH (09:25)
[2016-12-30] MEDS: Gabapentin 100 MG Cap PO SCH (09:25)
[2016-12-30] MEDS: Cholecalciferol (Vitamin D3) 1,000 Unit Tab PO SCH (09:25)
[2016-12-30] MEDS: VERIFY SCOPOLAMINE PATCH TOP SCH (09:26)
[2016-12-30] MEDS: GLUCOSAMINE SULFATE 750 MG PO SCH (09:26)
[2016-12-30] MEDS: Sennosides 8.6 MG Tab PO SCH ×2 (09:27→21:23)
[2016-12-30] MEDS: ZINC PO SCH (09:27)
[2016-12-30] MEDS: Aluminum Hydroxide/Magnesium Hydroxide/Simethicone Susp 30 ML Cup PO PRN (09:32)
[2016-12-30] MEDS: Hydrochlorothiazide/Triamterene 25-37.5 MG Cap PO SCH (11:14)
[2016-12-30] MEDS ORDERED: Levofloxacin 250 MG Tab PO SCH (14:15)
[2016-12-31] MEDS: Acetaminophen/oxyCODONE 325-5 MG Tab PO PRN ×2 (03:02→07:45)
[2016-12-31] MEDS: Pantoprazole 40 MG Tab.CR PO SCH (07:33)
[2016-12-31] MEDS: Aspirin 81 MG Tab.EC PO SCH (08:22)
[2016-12-31] MEDS: Vitamin B Complex Tab PO SCH (08:22)
[2016-12-31] MEDS: Gabapentin 100 MG Cap PO SCH (08:22)
[2016-12-31] MEDS: Polyethylene Glycol 3350 Powder 17 GM Packet PO SCH (08:22)
[2016-12-31] MEDS: Cholecalciferol (Vitamin D3) 1,000 Unit Tab PO SCH (08:22)
[2016-12-31] MEDS: Lisinopril 2.5 MG Tab PO SCH (08:22)
[2016-12-31] MEDS: Hydrochlorothiazide/Triamterene 25-37.5 MG Cap PO SCH (08:22)
[2016-12-31] MEDS: GLUCOSAMINE SULFATE 750 MG PO SCH (08:23)
[2016-12-31] MEDS: Sennosides 8.6 MG Tab PO SCH (08:23)
[2016-12-31] MEDS: Bisacodyl 5 MG Tab PO SCH (08:23)
[2016-12-31] MEDS: ZINC PO SCH (08:23)
[2016-12-31] MEDS: VERIFY SCOPOLAMINE PATCH TOP SCH (08:24)
--- NOTE | 2016-12-31 10:24 | PCM.DCSUM1 ---
Discharge Summary - Hospital Course Free Text/Narrative:: Patient is pod 4 of a lumbar fusion. She is doing better. She has minimal drainage. Her pain is under control with oral pain medication. She is ambulating with out assistance. She has denied any headaches. - Discharge Data Discharge Date: 12/31/16 Discharge Disposition: Home, Self-Care 01 Condition: Good - Patient Summary/Data Consults: Consultations 12/26/16 11:27 OT Evaluation and Treatment [CONS] Routine Please Evaluate and Treat. OT Reason for Consult: Strengthening This query below is only for informational purposes and is not editable. PT Evaluation and Treatment [CONS] Routine Please Evaluate and Treat. PT Reason for Consult: Strengthening This query below is only for informational purposes and is not editable. - Patient Instructions Diet: Usual Diet as Tolerated Activity: Apply Ice, As Tolerated Driving: Do Not Drive Showering/Bathing: May Shower, No Tub Bathing/Swimming Wound/Incision Care: Keep Operative Site/Wound Site Clean and Dry, Change Dressing Daily Notify Provider of: Fever, Increased Pain, Swelling and Redness, Drainage, Nausea and/or Vomiting - Discharge Plan Prescriptions/Med Rec: Acetaminophen/oxyCODONE [Percocet 325-5 MG] 1 tab PO Q6HR #90 tablet Diazepam [Valium] 5 mg PO Q6H PRN #20 tablet PRN Reason: Spasms Ondansetron HCl [Zofran] 4 mg PO Q8H PRN #20 ml PRN Reason: Nausea Sennosides [Senna] 8.6 mg PO BID #90 tablet Home Medications: Home Meds Aspirin [Halfprin] 81 mg PO DAILY 11/23/16 [History] Biotin 1 tab PO DAILY 11/23/16 [History] Calcium Carbonate/Vitamin D3 [Calcium 600 + Vit D 200] 1 tab PO DAILY 11/23/16 [ History] Cholecalciferol (Vitamin D3) [Vitamin D3] 1 tab PO DAILY 11/23/16 [History] Gabapentin [Neurontin] 100 mg PO DAILY 11/23/16 [History] Glucosamine Sulfate 750 mg PO DAILY 11/23/16 [History] HCTZ/Triamterene [Maxzide 25-37.5 MG] 1 tab PO DAILY 11/23/16 [History] Lisinopril [Prinivil] 1 tab PO DAILY 11/23/16 [History] Naproxen [Naprosyn] 500 mg PO BID PRN 11/23/16 [History] [place]-3/DHA/Epa/Fish Oil [[place]-3 Fish Oil 1,000 MG Sfgl] 1 tab PO DAILY [History] Omeprazole 20 mg PO DAILY 11/23/16 [History] Vitamin B Complex [B Complex] 1 tab PO DAILY 11/23/16 [History] Zinc 1 tab PO DAILY 11/23/16 [History] Acetaminophen/oxyCODONE [Percocet 325-5 MG] 1 tab PO Q6HR #90 tablet 12/31/16 [ Rx] Diazepam [Valium] 5 mg PO Q6H PRN #20 tablet 12/31/16 [Rx] Ondansetron HCl [Zofran] 4 mg PO Q8H PRN #20 ml 12/31/16 [Rx] Sennosides [Senna] 8.6 mg PO BID #90 tablet 12/31/16 [Rx] Referrals: Nanci Pulido NP [Nurse Practitioner] - 01/25/17 10:00 am - Discharge Summary/Plan Comment DC Time >30 min.: Yes Discharge Summary/Plan Comment: Patient will dc today. She will follow up with me in 1 month. She will be sent home on valium and percocet. She will continue to ambulate. I educated her on no straining. - Patient Data Vitals - Most Recent: Last Vital Signs Temp 36.9 C 12/31/16 07:34 Pulse 88 12/31/16 07:34 Resp 18 12/31/16 07:34 BP 132/78 12/31/16 08:22 Pulse Ox 97 12/31/16 07:34 Weight - Most Recent: 179 lb 6.383 oz I&O - Last 24 hours: Intake & Output 12/30/16 12/31/16 12/31/16 22:59 06:59 14:59 Intake Total 300 120 360 Output Total 1400 Balance -1100 120 360 Lab Results - Last 24 hrs: Laboratory Results - last 24 hr 12/31/16 12/31/16 Range/Units 06:28 06:30 WBC 7.7 (4.5-11.0) K/uL RBC 4.57 (3.30-5.50) M/uL Hgb 12.6 D (12.0-15.0) g/dL Hct 38.0 (36.0-48.0) % MCV 83 (80-98) fL MCH 28 (27-31) pg MCHC 33 (32-36) % Plt Count 290 (150-400) K/uL Neut % (Auto) 60 (36-66) % Lymph % (Auto) 23 L (24-44) % [place] % (Auto) 9 H (2-6) % Eos % (Auto) 8 H (2-4) % Baso % (Auto) 0 (0-1) % Sodium 137 L (140-148) mmol/L Potassium 3.6 (3.6-5.2) mmol/L Chloride 103 (100-108) mmol/L Carbon Dioxide 28 (21-32) mmol/L Anion Gap 9.6 (5.0-14.0) mmol/L BUN 12 (7-18) mg/dL Creatinine 0.8 (0.6-1.0) mg/dL Est Cr Clr Drug Dosing 49.69 mL/min Estimated GFR (MDRD) > 60 (>60) Glucose 115 H (74-106) mg/dL Calcium 9.1 (8.5-10.1) mg/dL Med Orders - Current: Current Medications Al Hydroxide/Mg Hydroxide (Mag-Al Plus) 30 ml PO Q4H PRN PRN Reason: Indigestion Last Admin: 12/30/16 09:32 Dose: 30 ml Aspirin (Halfprin) 81 mg PO DAILY [facility] Last Admin: 12/31/16 08:22 Dose: 81 mg Bisacodyl (Dulcolax) 5 mg PO DAILY [facility] Last Admin: 12/31/16 08:23 Dose: Not Given Cholecalciferol (Vitamin D3) 1,000 units PO DAILY [facility] Last Admin: 12/31/16 08:22 Dose: 1,000 units Diazepam (Valium.) 5 mg PO Q6H PRN PRN Reason: Spasms Docusate Sodium (Colace 50 Mg/5 Ml Liquid) 100 mg PO BID PRN PRN Reason: Constipation Gabapentin (Neurontin) 100 mg PO DAILY [facility] Last Admin: 12/31/16 08:22 Dose: 100 mg Levofloxacin 250 mg/ (Levofloxacin 500 mg) 750 mg PO Q24H [facility] Last Admin: 12/30/16 14:39 Dose: 750 mg Lisinopril (Prinivil) 2.5 mg PO DAILY [facility] Last Admin: 12/31/16 08:22 Dose: 2.5 mg Magnesium Hydroxide (Milk Of Magnesia) 30 ml PO BID PRN PRN Reason: Constipation Naloxone HCl (Narcan) 0.2 mg IVPUSH ONETIME PRN PRN Reason: Oversedation Glucosamine Sulfate (750 Mg (Ptom)) 0 mg PO DAILY [facility] Last Admin: 12/31/16 08:23 Dose: Not Given Zinc (Ptom) 1 tab PO DAILY [facility] Last Admin: 12/31/16 08:23 Dose: Not Given Verify Scopolamine (Patch) 0 each TOP DAILY [facility] Last Admin: 12/31/16 08:24 Dose: 1 each Ondansetron HCl (Zofran) 8 mg IVPUSH Q4H PRN PRN Reason: Nausea/Vomiting Last Admin: 12/27/16 08:56 Dose: 8 mg Oxycodone/Acetaminophen (Percocet 325-5 Mg) 2 tab PO Q4H PRN PRN Reason: Pain Last Admin: 12/31/16 07:45 Dose: 2 tab Pantoprazole Sodium (Protonix) 40 mg PO ACBREAKFAST [facility] Last Admin: 12/31/16 07:33 Dose: 40 mg Polyethylene Glycol (Miralax) 17 gm PO DAILY [facility] Last Admin: 12/31/16 08:22 Dose: 17 gm Senna (Senna) 8.6 mg PO BID PRN PRN Reason: Constipation Last Admin: 12/30/16 09:25 Dose: 8.6 mg Senna (Senna) 8.6 mg PO BID [facility] Last Admin: 12/31/16 08:23 Dose: Not Given Triamterene/HCTZ (Dyazide 25-37.5 Mg) 1 each PO DAILY [facility] Last Admin: 12/31/16 08:22 Dose: 1 each Vitamin B Complex (Vitamin B Complex) 1 each PO DAILY [facility] Last Admin: 12/31/16 08:22 Dose: 1 each Zolpidem Tartrate (Ambien) 5 mg PO BEDTIME PRN PRN Reason: Sleep Discontinued Medications Ropivacaine 49.25 ml/Ketorolac Tromethamine 30 mg/Epinephrine HCl 0.5 mg/ Clonidine HCl 80 mcg/ Sodium Chloride 48.45 ml 0 ml INJECT ONETIME ONE Stop: 12/26/16 07:46 Last Admin: 12/26/16 10:02 Dose: 100 ml Dexamethasone (Dexamethasone) Confirm Administered Dose 4 mg .ROUTE .STK-MED ONE Stop: 12/26/16 07:17 Ephedrine Sulfate (Ephedrine Sulfate) Confirm Administered Dose 50 mg .ROUTE .STK-MED ONE Stop: 12/26/16 08:18 Fentanyl (Sublimaze) Confirm Administered Dose 250 mcg .ROUTE .STK-MED ONE Stop: 12/26/16 07:16 Fentanyl (Sublimaze) Confirm Administered Dose 250 mcg .ROUTE .STK-MED ONE Stop: 12/26/16 10:01 Gabapentin (Neurontin) 300 mg PO ONETIME ONE Stop: 12/26/16 06:01 Last Admin: 12/26/16 06:03 Dose: 300 mg Glycopyrrolate (Robinul) Confirm Administered Dose 1 mg .ROUTE .STK-MED ONE Stop: 12/26/16 11:01 Hydromorphone HCl (Dilaudid) 1 mg IVPUSH Q2H PRN PRN Reason: Pain Stop: 12/27/16 11:27 Last Admin: 12/26/16 19:48 Dose: 1 mg Clindamycin Phosphate 900 mg/ (Sodium Chloride) 106 mls @ 200 mls/hr IV ONETIME ONE Stop: 12/26/16 08:01 Last Admin: 12/26/16 07:27 Dose: 200 mls/hr Lactated Ringer's (Ringers, Lactated) 1,000 mls @ 100 mls/hr IV ASDIRECTED [facility] Last Admin: 12/27/16 00:06 Dose: 100 mls/hr Tranexamic Acid 800 mg/ Sodium (Chloride) 58 mls @ 232 mls/hr IV Q3H [facility] Stop: 12/26/16 10:59 Last Admin: 12/26/16 11:48 Dose: 232 mls/hr Ketamine HCl 100 mg/ Sodium (Chloride) 100 mls @ 14 mls/hr IV ASDIRECTED [facility] Lactated Ringer's (Ringers, Lactated) Confirm Administered Dose 1,000 mls @ as directed .ROUTE .STK-MED ONE Stop: 12/26/16 08:33 Acetaminophen 1,000 mg/ Premix 100 mls @ 400 mls/hr IV NOW ONE Stop: 12/26/16 11:40 Last Admin: 12/26/16 14:18 Dose: Not Given Clindamycin Phosphate 600 mg/ (Sodium Chloride) 54 mls @ 100 mls/hr IV Q8H [facility] Stop: 12/27/16 04:03 Last Admin: 12/26/16 14:18 Dose: Not Given Clindamycin Phosphate 600 mg/ (Sodium Chloride) 54 mls @ 100 mls/hr IV Q8H [facility] Stop: 12/27/16 06:33 Last Admin: 12/27/16 05:36 Dose: 100 mls/hr Acetaminophen 1,000 mg/ Premix 100 mls @ 400 mls/hr IV NOW ONE Stop: 12/26/16 13:59 Last Admin: 12/26/16 14:19 Dose: 400 mls/hr Levofloxacin/Dextrose 750 mg/ (Premix) 150 mls @ 100 mls/hr IV Q24H [facility] Last Admin: 12/29/16 16:47 Dose: 100 mls/hr Ketamine HCl (Ketalar) 23 mg IV ASDIRECTED [facility] Neostigmine Methylsulfate (Neostigmine) Confirm Administered Dose 5 mg .ROUTE .STK-MED ONE Stop: 12/26/16 11:01 Ondansetron HCl (Zofran) Confirm Administered Dose 4 mg .ROUTE .STK-MED ONE Stop: 12/26/16 07:17 Oxycodone HCl (Oxycodone) 10 mg PO Q4H PRN PRN Reason: Pain Stop: 12/27/16 11:27 Last Admin: 12/27/16 08:56 Dose: 10 mg Phenylephrine HCl (Lon-Synephrine) Confirm Administered Dose 10 mg .ROUTE .STK- MED ONE Stop: 12/26/16 08:37 Povidone Iodine (Betadine 10% Soln) Confirm Administered Dose 1 ml .ROUTE .STK- MED ONE Stop: 12/26/16 06:59 Last Admin: 12/26/16 11:00 Dose: 30 ml Propofol (Diprivan 20 Ml) Confirm Administered Dose 200 mg .ROUTE .STK-MED ONE Stop: 12/26/16 07:17 Propofol (Diprivan 20 Ml) Confirm Administered Dose 400 mg .ROUTE .STK-MED ONE Stop: 12/26/16 07:49 Propofol (Diprivan 20 Ml) Confirm Administered Dose 200 mg .ROUTE .STK-MED ONE Stop: 12/26/16 09:32 Propofol (Diprivan 20 Ml) Confirm Administered Dose 200 mg .ROUTE .STK-MED ONE Stop: 12/26/16 10:33 Rocuronium [place] (Zemuron) Confirm Administered Dose 50 mg .ROUTE .STK-MED ONE Stop: 12/26/16 07:17 Scopolamine (Transderm-Scop) 1.5 mg TOP Q72H [facility] Stop: 12/29/16 04:00 Last Admin: 12/26/16 06:04 Dose: 1.5 mg Sodium Chloride (Normal Saline) 250 ml IV .STK-MED ONE Stop: 12/26/16 08:21 Last Admin: 12/26/16 08:20 Dose: 250 ml Succinylcholine Chloride (Quelicin) Confirm Administered Dose 200 mg .ROUTE .STK -MED ONE Stop: 12/26/16 07:17 Thrombin (Thrombin-Jmi) Confirm Administered Dose 15,000 unit .ROUTE .STK-MED ONE Stop: 12/26/16 06:59 Last Admin: 12/26/16 08:38 Dose: 10,000 unit Vancomycin HCl (Vancomycin) Confirm Administered Dose 1 gm .ROUTE .STK-MED ONE Stop: 12/26/16 10:56 Last Admin: 12/26/16 11:00 Dose: 1 gm - Exam General: Reports: Alert, Oriented Back Exam: Reports: Normal Inspection Extremities: Normal Inspection, Normal Range of Motion, Non-Tender, No Pedal Edema, Normal Capillary Refill Skin: Reports: Warm, Dry, Intact Wound/Incisions: Reports: Healing Well, Dressing Dry and Intact Neurological: Reports: No New Focal Deficit, Normal Gait, Strength Equal Bilateral, Reflexes Equal Bilateral Psy/Mental Status: Reports: Alert *Q Meaningful Use (DIS) - VTE *Q VTE Criteria *Q: - Stroke *Q Stroke Criteria *Q: - AMI *Q AMI Criteria *Q:
[2016-12-31] MEDS ORDERED: Ondansetron 4 MG Tab.DIS PO PRN (11:38)
== END 2016-12-31 14:42 | disposition home or self-care (01) | DRG 304 ==
LOC: JP.SDS 05:34 → JP.MS 05:34 → EDSTATUS 09:30 → JP.MS 11:27
PROVIDERS: ADMIT Orthopaedic Surgery; ATTEND Orthopaedic Surgery
PROC: 0SG00AJ Fusion of Lumbar Vertebral Joint with Interbody Fusion Device, Posterior Approach, Anterior Column, Open Approach (ICD-10-PCS; principal; 2016-12-26)
PROC: 0QB00ZZ Excision of Lumbar Vertebra, Open Approach (ICD-10-PCS; 2016-12-26)
PROC: 01NB0ZZ Release Lumbar Nerve, Open Approach (ICD-10-PCS; 2016-12-26)
DX: M43.16 Spondylolisthesis, lumbar region (principal); M48.061 Spinal stenosis, lumbar region without neurogenic claudication; M54.16 Radiculopathy, lumbar region; R51 Headache; Z79.82 Long term (current) use of aspirin; Z88.0 Allergy status to penicillin
CPT/HCPCS: 36415; 80048; 85025; 86850; 86900; 86901; 97110-GP; 97116-GP; 97162-GP; 97165-GO; 97530-GP; 97535-GP; 97760-GP; A9270-GY; C1713; C1763; J0131; J0171; J0330; J0735; J1100; J1170; J1885; J1956; J2370; J2405; J2704; J2710; J2795; J3010; J3370; J7030; J7040; J7050; J7120; S0077

== ENCOUNTER 2017-01-01 11:37 | Inpatient (IN) | payer BC ==
[2017-01-01] MEDS ORDERED: Ondansetron 4 MG/2 ML SDV IV PRN (11:40)
[2017-01-01] MEDS ORDERED: Sodium Chloride 0.9% 10 ML Syringe FLUSH PRN (11:40)
[2017-01-01] MEDS ORDERED: hydrOXYzine HCl 100 MG/2 ML SDV IM PRN (11:40)
[2017-01-01] MEDS ORDERED: Sodium Chloride 0.9% 500 ML IV SCH (11:45)
[2017-01-01] MEDS: Levofloxacin/Dextrose 5%-Water 750 MG in Premix Bag 1 BAG IV SCH (13:54)
[2017-01-01] MEDS: Acetaminophen/oxyCODONE 325-5 MG Tab PO PRN ×2 (14:00→19:54)
[2017-01-01] MEDS ORDERED: HYDROmorphone 1 MG/ML Syringe IVPUSH ONE (14:15)
[2017-01-01] MEDS: Zolpidem 5 MG Tab PO PRN (20:39)
[2017-01-01] MEDS: Docusate Sodium 100 MG Cap PO SCH (20:39)
[2017-01-02] MEDS: Acetaminophen/oxyCODONE 325-5 MG Tab PO PRN ×4 (04:57→22:30)
[2017-01-02] MEDS ORDERED: OMEPRAZOLE 20 MG PO SCH (07:30)
[2017-01-02] MEDS: Pantoprazole 40 MG Tab.CR PO SCH (07:44)
[2017-01-02] MEDS: Vitamin B Complex Tab PO SCH (08:57)
[2017-01-02] MEDS: Docusate Sodium 100 MG Cap PO SCH ×2 (08:57→21:11)
[2017-01-02] MEDS: Gabapentin 100 MG Cap PO SCH (08:57)
[2017-01-02] MEDS: Fish Oil/Omega-3 Fatty Acids 1 Gm Cap PO SCH (08:57)
[2017-01-02] MEDS: Lisinopril 2.5 MG Tab PO SCH (08:57)
[2017-01-02] MEDS: Aspirin 81 MG Tab.EC PO SCH (08:58)
[2017-01-02] MEDS: Hydrochlorothiazide/Triamterene 25-37.5 MG Cap PO SCH (08:58)
[2017-01-02] MEDS: ZINC PO SCH (09:00)
[2017-01-02] MEDS: Levofloxacin/Dextrose 5%-Water 750 MG in Premix Bag 1 BAG IV SCH (12:34)
[2017-01-02] MEDS: Bisacodyl 5 MG Tab PO PRN (21:10)
[2017-01-02] MEDS: Zolpidem 5 MG Tab PO PRN (22:30)
[2017-01-03] MEDS: Pantoprazole 40 MG Tab.CR PO SCH (07:21)
[2017-01-03] MEDS: Hydrochlorothiazide/Triamterene 25-37.5 MG Cap PO SCH (10:23)
[2017-01-03] MEDS: Lisinopril 2.5 MG Tab PO SCH (10:23)
[2017-01-03] MEDS: Aspirin 81 MG Tab.EC PO SCH (10:24)
[2017-01-03] MEDS: Gabapentin 100 MG Cap PO SCH (10:24)
[2017-01-03] MEDS: Docusate Sodium 100 MG Cap PO SCH ×2 (10:24→20:40)
[2017-01-03] MEDS: Vitamin B Complex Tab PO SCH (10:24)
[2017-01-03] MEDS: Fish Oil/Omega-3 Fatty Acids 1 Gm Cap PO SCH (10:24)
[2017-01-03] MEDS: ZINC PO SCH (10:25)
--- NOTE | 2017-01-03 10:35 | PCM.PN ---
- General Info Date of Service: 01/03/17 Functional Status: Reports: Pain Controlled - Review of Systems General: Reports: No Symptoms HEENT: Reports: No Symptoms Pulmonary: Reports: No Symptoms Cardiovascular: Reports: No Symptoms Gastrointestinal: Reports: No Symptoms Genitourinary: Reports: No Symptoms Musculoskeletal: Reports: Back Pain Skin: Reports: No Symptoms Neurological: Reports: No Symptoms Psychiatric: Reports: No Symptoms - Patient Data Vitals - Most Recent: Last Vital Signs Temp 98.7 F 01/03/17 07:44 Pulse 96 01/03/17 07:44 Resp 16 01/03/17 07:44 BP 112/68 01/03/17 10:23 Pulse Ox 94 L 01/03/17 07:44 Weight - Most Recent: 172 lb 0.004 oz I&O - Last 24 Hours: Intake & Output 01/02/17 01/03/17 01/03/17 22:59 06:59 14:59 Intake Total 740 200 Output Total 880 1300 Balance -140 -1300 200 Med Orders - Current: Current Medications Aspirin (Halfprin) 81 mg PO DAILY [facility] Last Admin: 01/03/17 10:24 Dose: 81 mg Bisacodyl (Dulcolax) 5 mg PO DAILY PRN PRN Reason: Constipation Last Admin: 01/02/17 21:10 Dose: 5 mg Docusate Sodium (Colace) 100 mg PO BID [facility] Last Admin: 01/03/17 10:24 Dose: 100 mg Fish Oil (Fish Oil) 1 gm PO DAILY [facility] Last Admin: 01/03/17 10:24 Dose: 1 gm Gabapentin (Neurontin) 100 mg PO DAILY [facility] Last Admin: 01/03/17 10:24 Dose: 100 mg Hydroxyzine HCl (Vistaril) 100 mg IM Q6H PRN PRN Reason: Nausea/Vomiting Levofloxacin/Dextrose 750 mg/ (Premix) 150 mls @ 100 mls/hr IV Q24H [facility] Last Admin: 01/02/17 12:34 Dose: 100 mls/hr Lisinopril (Prinivil) 2.5 mg PO DAILY [facility] Last Admin: 01/03/17 10:23 Dose: 2.5 mg Zinc (Ptom) 0 tab PO DAILY [facility] Last Admin: 01/03/17 10:25 Dose: Not Given Ondansetron HCl (Zofran) 8 mg IV Q4H PRN PRN Reason: Nausea/Vomiting Oxycodone/Acetaminophen (Percocet 325-5 Mg) 2 tab PO Q4H PRN PRN Reason: Pain (moderate 4-6) Last Admin: 01/02/17 22:30 Dose: 2 tab Pantoprazole Sodium (Protonix) 40 mg PO ACBREAKFAST [facility] Last Admin: 01/03/17 07:21 Dose: 40 mg Polyethylene Glycol (Miralax) 17 gm PO DAILY PRN PRN Reason: Constipation Senna/Docusate Sodium (Senna Plus) 1 tab PO BID PRN PRN Reason: Constipation Last Admin: 01/02/17 21:10 Dose: 1 tab Sodium Chloride (Saline Flush) 10 ml FLUSH ASDIRECTED PRN PRN Reason: Keep Vein Open Triamterene/HCTZ (Dyazide 25-37.5 Mg) 1 each PO DAILY [facility] Last Admin: 01/03/17 10:23 Dose: 1 each Vitamin B Complex (Vitamin B Complex) 1 each PO DAILY [facility] Last Admin: 01/03/17 10:24 Dose: 1 each Zolpidem Tartrate (Ambien) 5 mg PO BEDTIME PRN PRN Reason: Sleep Last Admin: 01/02/17 22:30 Dose: 5 mg Discontinued Medications Diazepam (Valium) 2 mg IVPUSH ONETIME ONE Stop: 01/01/17 14:31 Last Admin: 01/01/17 14:25 Dose: 2 mg Diazepam (Valium) Confirm Administered Dose 10 mg .ROUTE .STK-MED ONE Stop: 01/01/17 14:19 Last Admin: 01/01/17 14:26 Dose: Not Given Hydromorphone HCl (Dilaudid) 2 mg IVPUSH ONETIME ONE Stop: 01/01/17 14:16 Last Admin: 01/01/17 14:15 Dose: 2 mg Sodium Chloride (Normal Saline) 500 mls @ 999 mls/hr IV .BOLUS MICHAEL Stop: 01/01/17 12:30 Last Admin: 01/01/17 12:30 Dose: 999 mls/hr Omeprazole 20 Mg ( (Ptom)) 20 mg PO DAILY@0730 MICHAEL - Exam General: Alert, Oriented HEENT: Pupils Equal, Pupils Reactive, EOMI, Mucous Membr. Moist/[place] Neck: Supple Lungs: Normal Respiratory Effort Back Exam: Normal Inspection, CVA Tenderness (L) Skin: Warm, Dry, Intact Wound/Incisions: Healing Well, Dressing Dry and Intact, No Drainage Neurological: No New Focal Deficit Psy/Mental Status: Alert, Normal Affect, Normal Mood - Problem List Review Problem List Initiated/Reviewed/Updated: Yes - Plan Plan:: A: HDEZ s/p posterior lumbar fusion most likely from csf leak P: Sutured with overlapping horizontal mattresses. No leakage for 2 days. Continue bedrest two days. suppository. push fluids.
[2017-01-03] MEDS: Polyethylene Glycol 3350 Powder 17 GM Packet PO PRN (11:38)
[2017-01-03] MEDS: Acetaminophen/oxyCODONE 325-5 MG Tab PO PRN ×2 (11:38→20:39)
[2017-01-03] MEDS ORDERED: Bisacodyl 10 MG Supp RECTAL PRN (11:41)
[2017-01-03] MEDS: Levofloxacin/Dextrose 5%-Water 750 MG in Premix Bag 1 BAG IV SCH (12:38)
[2017-01-04] MEDS: Zolpidem 5 MG Tab PO PRN ×2 (01:57→21:40)
[2017-01-04] MEDS: Acetaminophen/oxyCODONE 325-5 MG Tab PO PRN ×3 (01:57→20:12)
[2017-01-04] MEDS: Pantoprazole 40 MG Tab.CR PO SCH (08:04)
--- NOTE | 2017-01-04 08:09 | PCM.PN ---
- General Info Date of Service: 01/04/17 Admission Dx/Problem (Free Text): Patient is doing well. She has minimal drainage at this time. She is continuing on bedrest at this time. Functional Status: Reports: Pain Controlled, Tolerating Diet, Urinating - Patient Data Vitals - Most Recent: Last Vital Signs Temp 36.3 C 01/04/17 07:14 Pulse 92 01/04/17 07:14 Resp 16 01/04/17 07:14 BP 122/77 01/04/17 07:14 Pulse Ox 99 01/04/17 07:14 Weight - Most Recent: 172 lb 0.004 oz I&O - Last 24 Hours: Intake & Output 01/03/17 01/04/17 01/04/17 22:59 06:59 14:59 Intake Total 1230 Output Total 800 925 Balance 430 -925 Med Orders - Current: Current Medications Aspirin (Halfprin) 81 mg PO DAILY [facility] Last Admin: 01/03/17 10:24 Dose: 81 mg Bisacodyl (Dulcolax) 5 mg PO DAILY PRN PRN Reason: Constipation Last Admin: 01/02/17 21:10 Dose: 5 mg Bisacodyl (Dulcolax) 10 mg RECTAL DAILY PRN PRN Reason: Constipation Last Admin: 01/03/17 17:32 Dose: 10 mg Docusate Sodium (Colace) 100 mg PO BID [facility] Last Admin: 01/03/17 20:40 Dose: 100 mg Fish Oil (Fish Oil) 1 gm PO DAILY [facility] Last Admin: 01/03/17 10:24 Dose: 1 gm Gabapentin (Neurontin) 100 mg PO DAILY [facility] Last Admin: 01/03/17 10:24 Dose: 100 mg Hydroxyzine HCl (Vistaril) 100 mg IM Q6H PRN PRN Reason: Nausea/Vomiting Levofloxacin/Dextrose 750 mg/ (Premix) 150 mls @ 100 mls/hr IV Q24H [facility] Last Admin: 01/03/17 12:38 Dose: 100 mls/hr Lisinopril (Prinivil) 2.5 mg PO DAILY [facility] Last Admin: 01/03/17 10:23 Dose: 2.5 mg Zinc (Ptom) 0 tab PO DAILY [facility] Last Admin: 01/03/17 10:25 Dose: Not Given Ondansetron HCl (Zofran) 8 mg IV Q4H PRN PRN Reason: Nausea/Vomiting Oxycodone/Acetaminophen (Percocet 325-5 Mg) 2 tab PO Q4H PRN PRN Reason: Pain (moderate 4-6) Last Admin: 01/04/17 01:57 Dose: 2 tab Pantoprazole Sodium (Protonix) 40 mg PO ACBREAKFAST [facility] Last Admin: 01/03/17 07:21 Dose: 40 mg Polyethylene Glycol (Miralax) 17 gm PO DAILY PRN PRN Reason: Constipation Last Admin: 01/03/17 11:38 Dose: 17 gm Senna/Docusate Sodium (Senna Plus) 1 tab PO BID PRN PRN Reason: Constipation Last Admin: 01/02/17 21:10 Dose: 1 tab Sodium Chloride (Saline Flush) 10 ml FLUSH ASDIRECTED PRN PRN Reason: Keep Vein Open Triamterene/HCTZ (Dyazide 25-37.5 Mg) 1 each PO DAILY [facility] Last Admin: 01/03/17 10:23 Dose: 1 each Vitamin B Complex (Vitamin B Complex) 1 each PO DAILY [facility] Last Admin: 01/03/17 10:24 Dose: 1 each Zolpidem Tartrate (Ambien) 5 mg PO BEDTIME PRN PRN Reason: Sleep Last Admin: 01/04/17 01:57 Dose: 5 mg Discontinued Medications Diazepam (Valium) 2 mg IVPUSH ONETIME ONE Stop: 01/01/17 14:31 Last Admin: 01/01/17 14:25 Dose: 2 mg Diazepam (Valium) Confirm Administered Dose 10 mg .ROUTE .STK-MED ONE Stop: 01/01/17 14:19 Last Admin: 01/01/17 14:26 Dose: Not Given Hydromorphone HCl (Dilaudid) 2 mg IVPUSH ONETIME ONE Stop: 01/01/17 14:16 Last Admin: 01/01/17 14:15 Dose: 2 mg Sodium Chloride (Normal Saline) 500 mls @ 999 mls/hr IV .[facility]HAEL Stop: 01/01/17 12:30 Last Admin: 01/01/17 12:30 Dose: 999 mls/hr Omeprazole 20 Mg ( (Ptom)) 20 mg PO DAILY@0730 [facility] - Exam General: Alert, Oriented Back Exam: Normal Inspection Extremities: Normal Inspection, Normal Range of Motion, No Pedal Edema, Normal Capillary Refill Peripheral Pulses: 2+: Dorsalis Pedis (L), Dorsalis Pedis (R) Skin: Warm, Dry, Intact Wound/Incisions: Healing Well, Dressing Dry and Intact Neurological: No New Focal Deficit, Strength Equal Bilateral, Reflexes Equal Bilateral Psy/Mental Status: Alert - Problem List Review Problem List Initiated/Reviewed/Updated: Yes - My Orders Last 24 Hours: My Active Orders 01/03/17 11:41 Bisacodyl [Dulcolax] 10 mg RECTAL DAILY PRN - Plan Plan:: A: HDEZ s/p posterior lumbar fusion most likely from csf leak P: Sutured with overlapping horizontal mattresses. No leakage for 3 days. Continue bedrest 1 day. suppository. push fluids.
[2017-01-04] MEDS: Hydrochlorothiazide/Triamterene 25-37.5 MG Cap PO SCH (09:40)
[2017-01-04] MEDS: Lisinopril 2.5 MG Tab PO SCH (09:41)
[2017-01-04] MEDS ORDERED: Vancomycin 1 GM SDV ONE (09:59)
[2017-01-04] MEDS ORDERED: Povidone-Iodine 10% Soln 118.25 ML Bottle ONE (10:00)
[2017-01-04] MEDS ORDERED: Thrombin (Bovine) 5,000 Unit Kit ONE (10:00)
[2017-01-04] MEDS ORDERED: HYDROmorphone 1 MG/ML Syringe IVPUSH ONE (10:15)
[2017-01-04] MEDS ORDERED: Diazepam 2 MG Tab PO ONE (10:15)
[2017-01-04] MEDS: Fish Oil/Omega-3 Fatty Acids 1 Gm Cap PO SCH ×2 (11:21→12:56)
[2017-01-04] MEDS: Docusate Sodium 100 MG Cap PO SCH ×3 (11:21→20:13)
[2017-01-04] MEDS: ZINC PO SCH (11:22)
[2017-01-04] MEDS: Aspirin 81 MG Tab.EC PO SCH ×2 (11:22→12:56)
[2017-01-04] MEDS: Vitamin B Complex Tab PO SCH ×2 (11:22→13:00)
[2017-01-04] MEDS: Gabapentin 100 MG Cap PO SCH ×2 (11:22→12:57)
[2017-01-04] MEDS: Levofloxacin/Dextrose 5%-Water 750 MG in Premix Bag 1 BAG IV SCH (12:09)
[2017-01-04] MEDS ORDERED: Aluminum Hydroxide/Magnesium Hydroxide/Simethicone Susp 30 ML Cup PO PRN (14:54)
[2017-01-04] MEDS: Hydrocortisone 1% Crm 30 GM Tube TOP PRN (15:30)
[2017-01-04] MEDS: Calcium Carbonate 500 MG Tab.Chew PO PRN ×2 (15:31→20:38)
[2017-01-05] MEDS: Acetaminophen/oxyCODONE 325-5 MG Tab PO PRN ×4 (02:48→23:24)
[2017-01-05] MEDS: Docusate Sodium 100 MG Cap PO SCH ×2 (08:03→20:53)
[2017-01-05] MEDS: Pantoprazole 40 MG Tab.CR PO SCH (08:03)
[2017-01-05] MEDS: Aspirin 81 MG Tab.EC PO SCH (08:04)
[2017-01-05] MEDS: Fish Oil/Omega-3 Fatty Acids 1 Gm Cap PO SCH (08:04)
[2017-01-05] MEDS: Lisinopril 2.5 MG Tab PO SCH (08:05)
[2017-01-05] MEDS: Gabapentin 100 MG Cap PO SCH (08:05)
[2017-01-05] MEDS: ZINC PO SCH (08:06)
[2017-01-05] MEDS: Vitamin B Complex Tab PO SCH (08:06)
[2017-01-05] MEDS: Hydrochlorothiazide/Triamterene 25-37.5 MG Cap PO SCH (08:57)
[2017-01-05] MEDS: Levofloxacin/Dextrose 5%-Water 750 MG in Premix Bag 1 BAG IV SCH (11:42)
--- NOTE | 2017-01-05 15:02 | PCM.SN ---
- Free Text/Narrative Note: Subj: I was called to Carmen's room this afternoon after she had a syncopal event. Per report she had just finished having a bowel movement when she suddenly became very pale and stared blankly. She then became diaphoretic and started to lean to the right. She was stabilized here by nursing staff and the episode lasted approximately 1 minute. After about 1 minute she returned to normal level of consciousness. She continued to be slightly diaphoretic but otherwise felt well. She does not feel dizzy or lightheaded. No complaints of chest pain. Blood pressure and heart rate are very similar to previous levels during her hospital stay. Physical examination BP 101/75 HR 101 Gen: No acute distress resting comfortably HEENT: Pupils are equal and round Cardio: She is a regular rhythm with mild tachycardia. No murmur/rub/gallop Resp: Lungs clear to auscultation bilaterally Abd: Soft and nondistended Ext: Warm, well-perfused. Strong dorsalis pedis pulse A/P: Syncope - likely vasovagal. Vital signs are clear. Patient has been on bed rest. I don't think additional workup is necessary since she feels well and diagnosis seems very likely. -Close monitoring -No additional workup needed unless there is recurrence or if she develops additional symptoms Chino Irby M.D.
[2017-01-05] MEDS: Hydrocortisone 1% Crm 30 GM Tube TOP PRN (20:56)
[2017-01-05] MEDS: Zolpidem 5 MG Tab PO PRN (23:25)
[2017-01-06] MEDS: Acetaminophen/oxyCODONE 325-5 MG Tab PO PRN ×4 (03:53→22:56)
[2017-01-06] MEDS: Pantoprazole 40 MG Tab.CR PO SCH (08:00)
[2017-01-06] MEDS: Hydrochlorothiazide/Triamterene 25-37.5 MG Cap PO SCH (08:01)
[2017-01-06] MEDS: Docusate Sodium 100 MG Cap PO SCH ×2 (08:01→20:40)
[2017-01-06] MEDS: Fish Oil/Omega-3 Fatty Acids 1 Gm Cap PO SCH (08:01)
[2017-01-06] MEDS: Aspirin 81 MG Tab.EC PO SCH (08:01)
[2017-01-06] MEDS: Gabapentin 100 MG Cap PO SCH (08:02)
[2017-01-06] MEDS: Vitamin B Complex Tab PO SCH (08:02)
[2017-01-06] MEDS: Lisinopril 2.5 MG Tab PO SCH (08:02)
[2017-01-06] MEDS: ZINC PO SCH (08:03)
--- NOTE | 2017-01-06 10:19 | PCM.PN ---
- General Info Date of Service: 01/05/17 Admission Dx/Problem (Free Text): Patient is doing well today. Her dressing is clean and dry. Her pain is under control at this time. Functional Status: Reports: Pain Controlled, Tolerating Diet, Ambulating, Urinating - Patient Data Vitals - Most Recent: Last Vital Signs Temp 36.1 C 01/06/17 07:00 Pulse 95 01/06/17 07:00 Resp 18 01/06/17 07:00 BP 131/75 01/06/17 08:02 Pulse Ox 98 01/06/17 07:00 Weight - Most Recent: 172 lb 0.004 oz I&O - Last 24 Hours: Intake & Output 01/05/17 01/06/17 01/06/17 22:59 06:59 14:59 Output Total 100 500 400 Balance -100 -500 -400 Med Orders - Current: Current Medications Al Hydroxide/Mg Hydroxide (Mag-Al Plus) 30 ml PO Q4H PRN PRN Reason: Indigestion Aspirin (Halfprin) 81 mg PO DAILY [facility] Last Admin: 01/06/17 08:01 Dose: 81 mg Bisacodyl (Dulcolax) 5 mg PO DAILY PRN PRN Reason: Constipation Last Admin: 01/02/17 21:10 Dose: 5 mg Bisacodyl (Dulcolax) 10 mg RECTAL DAILY PRN PRN Reason: Constipation Last Admin: 01/03/17 17:32 Dose: 10 mg Calcium Carbonate/Glycine (Tums) 500 mg PO Q2H PRN PRN Reason: Indigestion Last Admin: 01/04/17 20:38 Dose: 500 mg Docusate Sodium (Colace) 100 mg PO BID [facility] Last Admin: 01/06/17 08:01 Dose: 100 mg Fish Oil (Fish Oil) 1 gm PO DAILY [facility] Last Admin: 01/06/17 08:01 Dose: 1 gm Gabapentin (Neurontin) 100 mg PO DAILY [facility] Last Admin: 01/06/17 08:02 Dose: 100 mg Hydrocortisone (Hydrocortisone 1% Crm) 0 gm TOP BID PRN PRN Reason: Itching Last Admin: 01/05/17 20:56 Dose: 1 applic Hydroxyzine HCl (Vistaril) 100 mg IM Q6H PRN PRN Reason: Nausea/Vomiting Levofloxacin/Dextrose 750 mg/ (Premix) 150 mls @ 100 mls/hr IV Q24H [facility] Last Admin: 01/05/17 11:42 Dose: 100 mls/hr Lisinopril (Prinivil) 2.5 mg PO DAILY [facility] Last Admin: 01/06/17 08:02 Dose: 2.5 mg Zinc (Ptom) 0 tab PO DAILY [facility] Last Admin: 01/06/17 08:03 Dose: Not Given Ondansetron HCl (Zofran) 8 mg IV Q4H PRN PRN Reason: Nausea/Vomiting Oxycodone/Acetaminophen (Percocet 325-5 Mg) 2 tab PO Q4H PRN PRN Reason: Pain (moderate 4-6) Last Admin: 01/06/17 09:13 Dose: 2 tab Pantoprazole Sodium (Protonix) 40 mg PO ACBREAKFAST [facility] Last Admin: 01/06/17 08:00 Dose: 40 mg Polyethylene Glycol (Miralax) 17 gm PO DAILY PRN PRN Reason: Constipation Last Admin: 01/03/17 11:38 Dose: 17 gm Senna/Docusate Sodium (Senna Plus) 1 tab PO BID PRN PRN Reason: Constipation Last Admin: 01/02/17 21:10 Dose: 1 tab Sodium Chloride (Saline Flush) 10 ml FLUSH ASDIRECTED PRN PRN Reason: Keep Vein Open Triamterene/HCTZ (Dyazide 25-37.5 Mg) 1 each PO DAILY [facility] Last Admin: 01/06/17 08:01 Dose: 1 each Vitamin B Complex (Vitamin B Complex) 1 each PO DAILY [facility] Last Admin: 01/06/17 08:02 Dose: 1 each Zolpidem Tartrate (Ambien) 5 mg PO BEDTIME PRN PRN Reason: Sleep Last Admin: 01/05/17 23:25 Dose: 5 mg Discontinued Medications Diazepam (Valium) 2 mg IVPUSH ONETIME ONE Stop: 01/01/17 14:31 Last Admin: 01/01/17 14:25 Dose: 2 mg Diazepam (Valium) Confirm Administered Dose 10 mg .ROUTE .STK-MED ONE Stop: 01/01/17 14:19 Last Admin: 01/01/17 14:26 Dose: Not Given Diazepam (Valium) 2 mg PO ONETIME ONE Stop: 01/04/17 10:16 Last Admin: 01/04/17 10:04 Dose: 2 mg Hydromorphone HCl (Dilaudid) 2 mg IVPUSH ONETIME ONE Stop: 01/01/17 14:16 Last Admin: 01/01/17 14:15 Dose: 2 mg Hydromorphone HCl (Dilaudid) 2 mg IVPUSH ONETIME ONE Stop: 01/04/17 10:16 Last Admin: 01/04/17 10:07 Dose: 2 mg Sodium Chloride (Normal Saline) 500 mls @ 999 mls/hr IV .[facility]OL[facility] MICHAEL Stop: 01/01/17 12:30 Last Admin: 01/01/17 12:30 Dose: 999 mls/hr Omeprazole 20 Mg ( (Ptom)) 20 mg PO DAILY@0730 [facility] Povidone Iodine (Betadine 10% Soln) Confirm Administered Dose 1 ml .ROUTE .STK- MED ONE Stop: 01/04/17 10:01 Thrombin (Thrombin-Jmi) Confirm Administered Dose 15,000 unit .ROUTE .STK-MED ONE Stop: 01/04/17 10:01 Vancomycin HCl (Vancomycin) Confirm Administered Dose 2 gm .ROUTE .STK-MED ONE Stop: 01/04/17 10:00 - Exam General: Alert, Oriented Back Exam: Normal Inspection Extremities: Normal Inspection, Normal Range of Motion, No Pedal Edema, Normal Capillary Refill Skin: Warm, Dry, Intact Wound/Incisions: Healing Well, Dressing Dry and Intact Neurological: No New Focal Deficit, Normal Gait, Strength Equal Bilateral, Reflexes Equal Bilateral - Problem List Review Problem List Initiated/Reviewed/Updated: Yes - Plan Plan:: A: HDEZ s/p posterior lumbar fusion most likely from csf leak P: Sutured with overlapping horizontal mattresses. No leakage for 4 days. We will start ambulating today. kalin gupta today. We will reassess tomorrow.
[2017-01-06] MEDS ORDERED: Acetaminophen/Caffeine 500-65 MG Tab PO PRN (10:23)
--- NOTE | 2017-01-06 10:23 | PCM.PN ---
- General Info Date of Service: 01/06/17 Admission Dx/Problem (Free Text): Patient is doing better today. She continues to ambulate at this time. She did have a syncopal episode yesterday during a bowel movement. She is having headaches today which makes her concerned. She is requesting to day until her headaches go away. Functional Status: Reports: Pain Controlled, Tolerating Diet, Ambulating - Patient Data Vitals - Most Recent: Last Vital Signs Temp 36.1 C 01/06/17 07:00 Pulse 95 01/06/17 07:00 Resp 18 01/06/17 07:00 BP 131/75 01/06/17 08:02 Pulse Ox 98 01/06/17 07:00 Weight - Most Recent: 172 lb 0.004 oz I&O - Last 24 Hours: Intake & Output 01/05/17 01/06/17 01/06/17 22:59 06:59 14:59 Output Total 100 500 400 Balance -100 -500 -400 Med Orders - Current: Current Medications Al Hydroxide/Mg Hydroxide (Mag-Al Plus) 30 ml PO Q4H PRN PRN Reason: Indigestion Aspirin (Halfprin) 81 mg PO DAILY [facility] Last Admin: 01/06/17 08:01 Dose: 81 mg Bisacodyl (Dulcolax) 5 mg PO DAILY PRN PRN Reason: Constipation Last Admin: 01/02/17 21:10 Dose: 5 mg Bisacodyl (Dulcolax) 10 mg RECTAL DAILY PRN PRN Reason: Constipation Last Admin: 01/03/17 17:32 Dose: 10 mg Calcium Carbonate/Glycine (Tums) 500 mg PO Q2H PRN PRN Reason: Indigestion Last Admin: 01/04/17 20:38 Dose: 500 mg Docusate Sodium (Colace) 100 mg PO BID [facility] Last Admin: 01/06/17 08:01 Dose: 100 mg Fish Oil (Fish Oil) 1 gm PO DAILY [facility] Last Admin: 01/06/17 08:01 Dose: 1 gm Gabapentin (Neurontin) 100 mg PO DAILY [facility] Last Admin: 01/06/17 08:02 Dose: 100 mg Hydrocortisone (Hydrocortisone 1% Crm) 0 gm TOP BID PRN PRN Reason: Itching Last Admin: 01/05/17 20:56 Dose: 1 applic Hydroxyzine HCl (Vistaril) 100 mg IM Q6H PRN PRN Reason: Nausea/Vomiting Levofloxacin/Dextrose 750 mg/ (Premix) 150 mls @ 100 mls/hr IV Q24H [facility] Last Admin: 01/05/17 11:42 Dose: 100 mls/hr Lisinopril (Prinivil) 2.5 mg PO DAILY [facility] Last Admin: 01/06/17 08:02 Dose: 2.5 mg Zinc (Ptom) 0 tab PO DAILY [facility] Last Admin: 01/06/17 08:03 Dose: Not Given Ondansetron HCl (Zofran) 8 mg IV Q4H PRN PRN Reason: Nausea/Vomiting Oxycodone/Acetaminophen (Percocet 325-5 Mg) 2 tab PO Q4H PRN PRN Reason: Pain (moderate 4-6) Last Admin: 01/06/17 09:13 Dose: 2 tab Pantoprazole Sodium (Protonix) 40 mg PO ACBREAKFAST [facility] Last Admin: 01/06/17 08:00 Dose: 40 mg Polyethylene Glycol (Miralax) 17 gm PO DAILY PRN PRN Reason: Constipation Last Admin: 01/03/17 11:38 Dose: 17 gm Senna/Docusate Sodium (Senna Plus) 1 tab PO BID PRN PRN Reason: Constipation Last Admin: 01/02/17 21:10 Dose: 1 tab Sodium Chloride (Saline Flush) 10 ml FLUSH ASDIRECTED PRN PRN Reason: Keep Vein Open Triamterene/HCTZ (Dyazide 25-37.5 Mg) 1 each PO DAILY [facility] Last Admin: 01/06/17 08:01 Dose: 1 each Vitamin B Complex (Vitamin B Complex) 1 each PO DAILY [facility] Last Admin: 01/06/17 08:02 Dose: 1 each Zolpidem Tartrate (Ambien) 5 mg PO BEDTIME PRN PRN Reason: Sleep Last Admin: 01/05/17 23:25 Dose: 5 mg Discontinued Medications Diazepam (Valium) 2 mg IVPUSH ONETIME ONE Stop: 01/01/17 14:31 Last Admin: 01/01/17 14:25 Dose: 2 mg Diazepam (Valium) Confirm Administered Dose 10 mg .ROUTE .STK-MED ONE Stop: 01/01/17 14:19 Last Admin: 01/01/17 14:26 Dose: Not Given Diazepam (Valium) 2 mg PO ONETIME ONE Stop: 01/04/17 10:16 Last Admin: 01/04/17 10:04 Dose: 2 mg Hydromorphone HCl (Dilaudid) 2 mg IVPUSH ONETIME ONE Stop: 01/01/17 14:16 Last Admin: 01/01/17 14:15 Dose: 2 mg Hydromorphone HCl (Dilaudid) 2 mg IVPUSH ONETIME ONE Stop: 01/04/17 10:16 Last Admin: 01/04/17 10:07 Dose: 2 mg Sodium Chloride (Normal Saline) 500 mls @ 999 mls/hr IV .BOLUS MICHAEL Stop: 01/01/17 12:30 Last Admin: 01/01/17 12:30 Dose: 999 mls/hr Omeprazole 20 Mg ( (Ptom)) 20 mg PO DAILY@0730 [facility] Povidone Iodine (Betadine 10% Soln) Confirm Administered Dose 1 ml .ROUTE .STK- MED ONE Stop: 01/04/17 10:01 Thrombin (Thrombin-Jmi) Confirm Administered Dose 15,000 unit .ROUTE .STK-MED ONE Stop: 01/04/17 10:01 Vancomycin HCl (Vancomycin) Confirm Administered Dose 2 gm .ROUTE .STK-MED ONE Stop: 01/04/17 10:00 - Exam General: Alert, Oriented Extremities: Normal Inspection, Normal Range of Motion, No Pedal Edema, Normal Capillary Refill Skin: Warm, Dry, Intact Wound/Incisions: Healing Well, Dressing Dry and Intact Neurological: No New Focal Deficit, Normal Gait, Strength Equal Bilateral, Reflexes Equal Bilateral Psy/Mental Status: Alert - Problem List Review Problem List Initiated/Reviewed/Updated: Yes - Plan Plan:: A: HDEZ s/p posterior lumbar fusion most likely from csf leak P: No leakage for 5 days. We will start her on excedrine to see if we can control the headaches. She will continue to increase her fluids. We will reassess tomorrow.
[2017-01-06] MEDS: Bisacodyl 5 MG Tab PO PRN (12:16)
[2017-01-06] MEDS: Levofloxacin/Dextrose 5%-Water 750 MG in Premix Bag 1 BAG IV SCH (12:17)
[2017-01-06] MEDS: Polyethylene Glycol 3350 Powder 17 GM Packet PO PRN (18:14)
[2017-01-06] MEDS: Zolpidem 5 MG Tab PO PRN (22:57)
[2017-01-07] MEDS: Acetaminophen/oxyCODONE 325-5 MG Tab PO PRN ×2 (06:52→14:42)
[2017-01-07] MEDS: Pantoprazole 40 MG Tab.CR PO SCH (08:36)
[2017-01-07] MEDS: Aspirin 81 MG Tab.EC PO SCH (08:37)
[2017-01-07] MEDS: Fish Oil/Omega-3 Fatty Acids 1 Gm Cap PO SCH (08:37)
[2017-01-07] MEDS: Hydrochlorothiazide/Triamterene 25-37.5 MG Cap PO SCH (08:37)
[2017-01-07] MEDS: Docusate Sodium 100 MG Cap PO SCH (08:37)
[2017-01-07] MEDS: Gabapentin 100 MG Cap PO SCH (08:38)
[2017-01-07] MEDS: Lisinopril 2.5 MG Tab PO SCH (08:38)
[2017-01-07] MEDS: Vitamin B Complex Tab PO SCH (08:38)
[2017-01-07] MEDS: ZINC PO SCH (08:39)
[2017-01-07] MEDS: Levofloxacin/Dextrose 5%-Water 750 MG in Premix Bag 1 BAG IV SCH ×2 (10:58→11:26)
--- NOTE | 2017-01-29 09:37 | PCM.PN ---
- General Info Date of Service: 01/02/17 Functional Status: Reports: Pain Controlled, Tolerating Diet, Urinating - Patient Data Vitals - Most Recent: Last Vital Signs Temp 36.7 C 01/07/17 08:00 Pulse 93 01/07/17 08:00 Resp 16 01/07/17 08:00 BP 109/72 01/07/17 08:38 Pulse Ox 98 01/07/17 08:00 Weight - Most Recent: 172 lb 0.004 oz Med Orders - Current: Current Medications Discontinued Medications Acetaminophen/Caffeine (Excedrin Tension Headache) 2 tab PO Q6H PRN PRN Reason: Headache Last Admin: 01/07/17 10:53 Dose: 2 tab Al Hydroxide/Mg Hydroxide (Mag-Al Plus) 30 ml PO Q4H PRN PRN Reason: Indigestion Aspirin (Halfprin) 81 mg PO DAILY [facility] Last Admin: 01/07/17 08:37 Dose: 81 mg Bisacodyl (Dulcolax) 5 mg PO DAILY PRN PRN Reason: Constipation Last Admin: 01/06/17 12:16 Dose: 5 mg Bisacodyl (Dulcolax) 10 mg RECTAL DAILY PRN PRN Reason: Constipation Last Admin: 01/03/17 17:32 Dose: 10 mg Calcium Carbonate/Glycine (Tums) 500 mg PO Q2H PRN PRN Reason: Indigestion Last Admin: 01/04/17 20:38 Dose: 500 mg Diazepam (Valium) 2 mg IVPUSH ONETIME ONE Stop: 01/01/17 14:31 Last Admin: 01/01/17 14:25 Dose: 2 mg Diazepam (Valium) Confirm Administered Dose 10 mg .ROUTE .STK-MED ONE Stop: 01/01/17 14:19 Last Admin: 01/01/17 14:26 Dose: Not Given Diazepam (Valium) 2 mg PO ONETIME ONE Stop: 01/04/17 10:16 Last Admin: 01/04/17 10:04 Dose: 2 mg Docusate Sodium (Colace) 100 mg PO BID [facility] Last Admin: 01/07/17 08:37 Dose: 100 mg Fish Oil (Fish Oil) 1 gm PO DAILY [facility] Last Admin: 01/07/17 08:37 Dose: 1 gm Gabapentin (Neurontin) 100 mg PO DAILY [facility] Last Admin: 01/07/17 08:38 Dose: 100 mg Hydrocortisone (Hydrocortisone 1% Crm) 0 gm TOP BID PRN PRN Reason: Itching Last Admin: 01/05/17 20:56 Dose: 1 applic Hydromorphone HCl (Dilaudid) 2 mg IVPUSH ONETIME ONE Stop: 01/01/17 14:16 Last Admin: 01/01/17 14:15 Dose: 2 mg Hydromorphone HCl (Dilaudid) 2 mg IVPUSH ONETIME ONE Stop: 01/04/17 10:16 Last Admin: 01/04/17 10:07 Dose: 2 mg Hydroxyzine HCl (Vistaril) 100 mg IM Q6H PRN PRN Reason: Nausea/Vomiting Sodium Chloride (Normal Saline) 500 mls @ 999 mls/hr IV .BOLUS [facility] Stop: 01/01/17 12:30 Last Admin: 01/01/17 12:30 Dose: 999 mls/hr Levofloxacin/Dextrose 750 mg/ (Premix) 150 mls @ 100 mls/hr IV Q24H [facility] Last Admin: 01/07/17 11:26 Dose: Not Given Lisinopril (Prinivil) 2.5 mg PO DAILY [facility] Last Admin: 01/07/17 08:38 Dose: 2.5 mg Omeprazole 20 Mg ( (Ptom)) 20 mg PO DAILY@0730 [facility] Zinc (Ptom) 0 tab PO DAILY [facility] Last Admin: 01/07/17 08:39 Dose: Not Given Ondansetron HCl (Zofran) 8 mg IV Q4H PRN PRN Reason: Nausea/Vomiting Oxycodone/Acetaminophen (Percocet 325-5 Mg) 2 tab PO Q4H PRN PRN Reason: Pain (moderate 4-6) Last Admin: 01/07/17 14:42 Dose: 2 tab Pantoprazole Sodium (Protonix) 40 mg PO ACBREAKFAST [facility] Last Admin: 01/07/17 08:36 Dose: 40 mg Polyethylene Glycol (Miralax) 17 gm PO DAILY PRN PRN Reason: Constipation Last Admin: 01/06/17 18:14 Dose: 17 gm Povidone Iodine (Betadine 10% Soln) Confirm Administered Dose 1 ml .ROUTE .STK- MED ONE Stop: 01/04/17 10:01 Senna/Docusate Sodium (Senna Plus) 1 tab PO BID PRN PRN Reason: Constipation Last Admin: 01/02/17 21:10 Dose: 1 tab Sodium Chloride (Saline Flush) 10 ml FLUSH ASDIRECTED PRN PRN Reason: Keep Vein Open Thrombin (Thrombin-Jmi) Confirm Administered Dose 15,000 unit .ROUTE .STK-MED ONE Stop: 01/04/17 10:01 Triamterene/HCTZ (Dyazide 25-37.5 Mg) 1 each PO DAILY [facility] Last Admin: 01/07/17 08:37 Dose: 1 each Vancomycin HCl (Vancomycin) Confirm Administered Dose 2 gm .ROUTE .STK-MED ONE Stop: 01/04/17 10:00 Vitamin B Complex (Vitamin B Complex) 1 each PO DAILY [facility] Last Admin: 01/07/17 08:38 Dose: 1 each Zolpidem Tartrate (Ambien) 5 mg PO BEDTIME PRN PRN Reason: Sleep Last Admin: 01/06/17 22:57 Dose: 5 mg - Exam General: Alert, Oriented GI/Abdominal Exam: Normal Bowel Sounds, Soft, Non-Tender Extremities: Normal Inspection, Normal Range of Motion, Non-Tender, No Pedal Edema, Normal Capillary Refill Peripheral Pulses: 2+: Dorsalis Pedis (L), Dorsalis Pedis (R) Skin: Warm, Dry, Intact Wound/Incisions: Healing Well, Dressing Dry and Intact Neurological: No New Focal Deficit Psy/Mental Status: Alert - Problem List Review Problem List Initiated/Reviewed/Updated: Yes - Plan Plan:: A: HDEZ s/p posterior lumbar fusion most likely from csf leak P: No leakage for 1 day. She will continue to increase her fluids. We will reassess tomorrow.
--- NOTE | 2017-01-29 09:50 | PCM.DCSUM1 ---
Discharge Summary - Discharge Data Discharge Date: 01/07/17 Discharge Disposition: Home, Self-Care 01 Condition: Good - Patient Instructions Diet: Usual Diet as Tolerated Activity: Apply Ice, As Tolerated Driving: Do Not Drive Showering/Bathing: May Shower, No Tub Bathing/Swimming Wound/Incision Care: Keep Operative Site/Wound Site Clean and Dry, Change Dressing Daily Notify Provider of: Fever, Increased Pain, Swelling and Redness, Drainage, Nausea and/or Vomiting - Discharge Plan Prescriptions/Med Rec: Levofloxacin [Levaquin] 750 mg PO Q24H #14 tablet Home Medications: Home Meds Aspirin [Halfprin] 81 mg PO DAILY 11/23/16 [History] Calcium Carbonate/Vitamin D3 [Calcium 600 + Vit D 200] 1 tab PO DAILY 11/23/16 [ History] Cholecalciferol (Vitamin D3) [Vitamin D3] 1 tab PO DAILY 11/23/16 [History] Gabapentin [Neurontin] 100 mg PO DAILY 11/23/16 [History] Glucosamine Sulfate 750 mg PO DAILY 11/23/16 [History] HCTZ/Triamterene [Maxzide 25-37.5 MG] 1 tab PO DAILY 11/23/16 [History] Lisinopril [Prinivil] 1 tab PO DAILY 11/23/16 [History] Naproxen [Naprosyn] 500 mg PO BID PRN 11/23/16 [History] Pullman-3/DHA/Epa/Fish Oil [Pullman-3 Fish Oil 1,000 MG Sfgl] 1 tab PO DAILY [History] Omeprazole 20 mg PO DAILY 11/23/16 [History] Vitamin B Complex [B Complex] 1 tab PO DAILY 11/23/16 [History] Zinc 1 tab PO DAILY 11/23/16 [History] Acetaminophen/oxyCODONE [Percocet 325-5 MG] 1 tab PO Q6HR #90 tablet 12/31/16 [ Rx] Diazepam [Valium] 5 mg PO Q6H PRN #20 tablet 12/31/16 [Rx] Ondansetron HCl [Zofran] 4 mg PO Q8H PRN #20 ml 12/31/16 [Rx] Sennosides [Senna] 8.6 mg PO BID #90 tablet 12/31/16 [Rx] Levofloxacin [Levaquin] 750 mg PO Q24H #14 tablet 01/07/17 [Rx] Patient Handouts: Spinal Fusion, Care After, Spinal Headache, Preventing Constipation After Surgery - Discharge Summary/Plan Comment DC Time >30 min.: Yes Discharge Summary/Plan Comment: Patient will be discharged home. She will follow-up with the clinic in one week. She is to notify me if she has any other issues in the meantime. - Patient Data Vitals - Most Recent: Last Vital Signs Temp 36.7 C 01/07/17 08:00 Pulse 93 01/07/17 08:00 Resp 16 01/07/17 08:00 BP 109/72 01/07/17 08:38 Pulse Ox 98 01/07/17 08:00 Weight - Most Recent: 172 lb 0.004 oz Med Orders - Current: Current Medications Discontinued Medications Acetaminophen/Caffeine (Excedrin Tension Headache) 2 tab PO Q6H PRN PRN Reason: Headache Last Admin: 01/07/17 10:53 Dose: 2 tab Al Hydroxide/Mg Hydroxide (Mag-Al Plus) 30 ml PO Q4H PRN PRN Reason: Indigestion Aspirin (Halfprin) 81 mg PO DAILY [facility] Last Admin: 01/07/17 08:37 Dose: 81 mg Bisacodyl (Dulcolax) 5 mg PO DAILY PRN PRN Reason: Constipation Last Admin: 01/06/17 12:16 Dose: 5 mg Bisacodyl (Dulcolax) 10 mg RECTAL DAILY PRN PRN Reason: Constipation Last Admin: 01/03/17 17:32 Dose: 10 mg Calcium Carbonate/Glycine (Tums) 500 mg PO Q2H PRN PRN Reason: Indigestion Last Admin: 01/04/17 20:38 Dose: 500 mg Diazepam (Valium) 2 mg IVPUSH ONETIME ONE Stop: 01/01/17 14:31 Last Admin: 01/01/17 14:25 Dose: 2 mg Diazepam (Valium) Confirm Administered Dose 10 mg .ROUTE .STK-MED ONE Stop: 01/01/17 14:19 Last Admin: 01/01/17 14:26 Dose: Not Given Diazepam (Valium) 2 mg PO ONETIME ONE Stop: 01/04/17 10:16 Last Admin: 01/04/17 10:04 Dose: 2 mg Docusate Sodium (Colace) 100 mg PO BID [facility] Last Admin: 01/07/17 08:37 Dose: 100 mg Fish Oil (Fish Oil) 1 gm PO DAILY [facility] Last Admin: 01/07/17 08:37 Dose: 1 gm Gabapentin (Neurontin) 100 mg PO DAILY [facility] Last Admin: 01/07/17 08:38 Dose: 100 mg Hydrocortisone (Hydrocortisone 1% Crm) 0 gm TOP BID PRN PRN Reason: Itching Last Admin: 01/05/17 20:56 Dose: 1 applic Hydromorphone HCl (Dilaudid) 2 mg IVPUSH ONETIME ONE Stop: 01/01/17 14:16 Last Admin: 01/01/17 14:15 Dose: 2 mg Hydromorphone HCl (Dilaudid) 2 mg IVPUSH ONETIME ONE Stop: 01/04/17 10:16 Last Admin: 01/04/17 10:07 Dose: 2 mg Hydroxyzine HCl (Vistaril) 100 mg IM Q6H PRN PRN Reason: Nausea/Vomiting Sodium Chloride (Normal Saline) 500 mls @ 999 mls/hr IV .BOLUS [facility] Stop: 01/01/17 12:30 Last Admin: 01/01/17 12:30 Dose: 999 mls/hr Levofloxacin/Dextrose 750 mg/ (Premix) 150 mls @ 100 mls/hr IV Q24H [facility] Last Admin: 01/07/17 11:26 Dose: Not Given Lisinopril (Prinivil) 2.5 mg PO DAILY [facility] Last Admin: 01/07/17 08:38 Dose: 2.5 mg Omeprazole 20 Mg ( (Ptom)) 20 mg PO DAILY@0730 [facility] Zinc (Ptom) 0 tab PO DAILY [facility] Last Admin: 01/07/17 08:39 Dose: Not Given Ondansetron HCl (Zofran) 8 mg IV Q4H PRN PRN Reason: Nausea/Vomiting Oxycodone/Acetaminophen (Percocet 325-5 Mg) 2 tab PO Q4H PRN PRN Reason: Pain (moderate 4-6) Last Admin: 01/07/17 14:42 Dose: 2 tab Pantoprazole Sodium (Protonix) 40 mg PO ACBREAKFAST [facility] Last Admin: 01/07/17 08:36 Dose: 40 mg Polyethylene Glycol (Miralax) 17 gm PO DAILY PRN PRN Reason: Constipation Last Admin: 01/06/17 18:14 Dose: 17 gm Povidone Iodine (Betadine 10% Soln) Confirm Administered Dose 1 ml .ROUTE .STK- MED ONE Stop: 01/04/17 10:01 Senna/Docusate Sodium (Senna Plus) 1 tab PO BID PRN PRN Reason: Constipation Last Admin: 01/02/17 21:10 Dose: 1 tab Sodium Chloride (Saline Flush) 10 ml FLUSH ASDIRECTED PRN PRN Reason: Keep Vein Open Thrombin (Thrombin-Jmi) Confirm Administered Dose 15,000 unit .ROUTE .STK-MED ONE Stop: 01/04/17 10:01 Triamterene/HCTZ (Dyazide 25-37.5 Mg) 1 each PO DAILY [facility] Last Admin: 01/07/17 08:37 Dose: 1 each Vancomycin HCl (Vancomycin) Confirm Administered Dose 2 gm .ROUTE .STK-MED ONE Stop: 01/04/17 10:00 Vitamin B Complex (Vitamin B Complex) 1 each PO DAILY [facility] Last Admin: 01/07/17 08:38 Dose: 1 each Zolpidem Tartrate (Ambien) 5 mg PO BEDTIME PRN PRN Reason: Sleep Last Admin: 01/06/17 22:57 Dose: 5 mg - Exam General: Reports: Alert, Oriented Back Exam: Reports: Normal Inspection, Full Range of Motion Extremities: Normal Inspection, Normal Range of Motion, Non-Tender, No Pedal Edema, Normal Capillary Refill Wound/Incisions: Reports: Healing Well, Dressing Dry and Intact, No Drainage *Q Meaningful Use (DIS) - VTE *Q VTE Criteria *Q: - Stroke *Q Stroke Criteria *Q: - AMI *Q AMI Criteria *Q:
== END 2017-01-07 13:26 | disposition home or self-care (01) | DRG 58 ==
LOC: JP.MS 11:37 → OBSVTOIN 16:20
PROVIDERS: ADMIT Orthopaedic Surgery; ATTEND Nurse Practitioner Family
PROC: 0JQ70ZZ Repair Back Subcutaneous Tissue and Fascia, Open Approach (ICD-10-PCS; principal; 2017-01-03)
DX: G96.0 Cerebrospinal fluid leak (principal); R51 Headache; R55 Syncope and collapse; Z98.890 Other specified postprocedural states; I10 Essential (primary) hypertension; Z98.1 Arthrodesis status; H54.7 Unspecified visual loss; K21.9 Gastro-esophageal reflux disease without esophagitis; M54.9 Dorsalgia, unspecified; G89.29 Other chronic pain; Z87.891 Personal history of nicotine dependence; Z79.82 Long term (current) use of aspirin; Z88.0 Allergy status to penicillin
CPT/HCPCS: 36415; 51702; 80053; 85027; A9270-GY; J1170; J1956; J3360; J3370; J7040

== ENCOUNTER 2017-01-15 10:52 | Inpatient (IN) | payer BC, MEDICARE ==
[2017-01-15] MEDS ORDERED: Sodium Chloride 0.9% 10 ML Syringe FLUSH PRN (11:59)
[2017-01-15] MEDS ORDERED: hydrOXYzine HCl 100 MG/2 ML SDV IM PRN (11:59)
[2017-01-15] MEDS ORDERED: Ondansetron 4 MG Tab.DIS PO PRN (11:59)
[2017-01-15] MEDS ORDERED: Acetaminophen/oxyCODONE 325-5 MG Tab PO PRN (11:59)
[2017-01-15] MEDS ORDERED: Zolpidem 5 MG Tab PO PRN (11:59)
[2017-01-15] MEDS ORDERED: Magnesium Hydroxide 400 MG/5 ML Susp 30 ML Cup PO PRN (11:59)
[2017-01-15] MEDS ORDERED: Lactated Ringers 1,000 ML IV SCH (12:00)
[2017-01-15] MEDS ORDERED: Diazepam 5 MG Tab PO PRN (12:05)
[2017-01-15] MEDS ORDERED: Levofloxacin/Dextrose 5%-Water 750 MG in Premix Bag 1 BAG IV SCH (13:00)
[2017-01-15] MEDS ORDERED: Docusate Sodium 100 MG Cap PO SCH (21:00)
[2017-01-16] MEDS ORDERED: Citalopram 10 MG Tab PO SCH (09:00)
[2017-01-16] MEDS ORDERED: Bisacodyl 5 MG Tab PO SCH (09:00)
--- NOTE | 2017-01-22 09:31 | PCM.HP ---
H&P History of Present Illness - General Date of Service: 01/15/17 Admit Problem/Dx: Admission Diagnosis/Problem Admission Diagnosis/Problem Lumbar spinal fusion Source of Information: Patient History Limitations: Reports: No Limitations - History of Present Illness Initial Comments - Free Text/Narative: Carmen is a pleasant 66-year-old female who is admitted today for increased drainage post lumbar fusion. Carmen had surgery on 12/28/2016 for a lumbar fusion. She had of a durotomy which did cause a cerebral spinal fluid leak. We' ve been monitoring it for the last month. Patient comes in today with increased drainage. She states that over the last day she has had increased drainage that has her concerned. She feels of a 4 x 4 very quickly. She states that she denies any other symptoms at this time. Onset of Symptoms: Reports: Today Back Pain Score (Numeric/FACES): 3 - Related Data Allergies/Adverse Reactions: Allergies Allergy/AdvReac Type Severity Reaction Status Date / Time Penicillins Allergy Mild Itching Verified 12/26/16 05:58 Home Medications: Home Meds Aspirin [Halfprin] 81 mg PO DAILY 11/23/16 [History] Calcium Carbonate/Vitamin D3 [Calcium 600 + Vit D 200] 1 tab PO DAILY 11/23/16 [ History] Cholecalciferol (Vitamin D3) [Vitamin D3] 1 tab PO DAILY 11/23/16 [History] Gabapentin [Neurontin] 100 mg PO DAILY 11/23/16 [History] Glucosamine Sulfate 750 mg PO DAILY 11/23/16 [History] HCTZ/Triamterene [Maxzide 25-37.5 MG] 1 tab PO DAILY 11/23/16 [History] Lisinopril [Prinivil] 1 tab PO DAILY 11/23/16 [History] Naproxen [Naprosyn] 500 mg PO BID PRN 11/23/16 [History] [place]-3/DHA/Epa/Fish Oil [[place]-3 Fish Oil 1,000 MG Sfgl] 1 tab PO DAILY [History] Omeprazole 20 mg PO DAILY 11/23/16 [History] Vitamin B Complex [B Complex] 1 tab PO DAILY 11/23/16 [History] Zinc 1 tab PO DAILY 11/23/16 [History] Acetaminophen/oxyCODONE [Percocet 325-5 MG] 1 tab PO Q6HR #90 tablet 11/19/17 [ Rx] Diazepam [Valium] 5 mg PO Q6H PRN #20 tablet 12/31/16 [Rx] Ondansetron HCl [Zofran] 4 mg PO Q8H PRN #20 ml 12/31/16 [Rx] Sennosides [Senna] 8.6 mg PO BID #90 tablet 12/31/16 [Rx] Levofloxacin [Levaquin] 750 mg PO Q24H #14 tablet 01/07/17 [Rx] Past Medical History HEENT History: Reports: Impaired Vision Cardiovascular History: Reports: Hypertension Gastrointestinal History: Reports: Colon Polyp, GERD Genitourinary History: Reports: 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: Musculoskeletal History: Reports: Back Pain, Chronic, Other (See Below) Other Musculoskeletal History: s/p TLIF Endocrine/Metabolic History: Reports: Obesity/BMI 30+ - Infectious Disease History Infectious Disease History: Reports: Chicken Pox, Measles - Past Surgical History HEENT Surgical History: Reports: None Cardiovascular Surgical History: Reports: None GI Surgical History: Reports: Colonoscopy, EGD Female Surgical History: Reports: Breast Biopsy Endocrine Surgical History: Reports: None Musculoskeletal Surgical History: Reports: None Social & Family History - Family History Family Medical History: Noncontributory - Tobacco Use Smoking Status *Q: Former Smoker Years of Tobacco use: 20 Packs/Tins Daily: 1 Used Tobacco, but Quit: Yes Month Tobacco Last Used: 2009 Second Hand Smoke Exposure: No - Caffeine Use Caffeine Use: Reports: Coffee - Alcohol Use Days Per Week of Alcohol Use: 2 Number of Drinks Per Day: 1 Total Drinks Per Week: 2 - Recreational Drug Use Recreational Drug Use: No H&P Review of Systems - Review of Systems: Review Of Systems: See Below General: Reports: No Symptoms HEENT: Reports: No Symptoms Skin: Reports: No Symptoms Exam - Exam Exam: See Below - Vital Signs Vital Signs: Last Vital Signs Temp 36.0 C 01/15/17 12:21 Pulse 88 01/15/17 12:21 Resp 16 01/15/17 12:21 BP 123/70 01/15/17 12:21 Pulse Ox 99 01/15/17 12:21 Weight: 171 lb 2 oz - Exam General: Alert, Oriented Extremities: Normal Inspection, Normal Range of Motion, No Pedal Edema, Normal Capillary Refill Peripheral Pulses: 2+: Dorsalis Pedis (L), Dorsalis Pedis (R) Skin: Warm, Dry, Intact, Wound (Lumbar incision notes large amount of clear drainage present) Neurological: Cranial Nerves Intact Neuro Extensive - Mental Status: Alert, Oriented x3, Normal Mood/Affect, Memory Intact Neuro Extensive - Motor, Sensory, Reflexes: Normal Gait Psychiatric: Alert, Depressed - Patient Data Result Diagrams: 01/15/17 12:09 01/15/17 12:09 *Q Meaningful Use (ADM) - VTE *Q VTE Criteria *Q: - Stroke *Q Stroke Criteria *Q: - AMI *Q AMI Criteria *Q: Problem List Initiated/Reviewed/Updated: Yes Assessment/Plan Comment:: At this time we'll plan to admit the patient to [facility]. I will put a Buckner catheter in her and have her become bed rest. We will also administer a PICC line for IV Levaquin. We will plan to keep her nothing by mouth for the next 2 days and possibly do surgery to repair. Patient will be continuously monitored.
--- NOTE | 2017-01-22 09:33 | PCM.DCSUM1 ---
Discharge Summary - Hospital Course Free Text/Narrative:: Patient is recently admitted for CSF leak. She does continue to leak at this time. Her pain is under control. Patient is bedrest. Buckner is placed. - Discharge Data Discharge Date: 01/15/17 Discharge Disposition: DC/Tfer to Acute Hospital 02 Condition: Good - Patient Instructions Diet: NPO - Discharge Plan Home Medications: Home Meds Aspirin [Halfprin] 81 mg PO DAILY 11/23/16 [History] Calcium Carbonate/Vitamin D3 [Calcium 600 + Vit D 200] 1 tab PO DAILY 11/23/16 [ History] Cholecalciferol (Vitamin D3) [Vitamin D3] 1 tab PO DAILY 11/23/16 [History] Gabapentin [Neurontin] 100 mg PO DAILY 11/23/16 [History] Glucosamine Sulfate 750 mg PO DAILY 11/23/16 [History] HCTZ/Triamterene [Maxzide 25-37.5 MG] 1 tab PO DAILY 11/23/16 [History] Lisinopril [Prinivil] 1 tab PO DAILY 11/23/16 [History] Naproxen [Naprosyn] 500 mg PO BID PRN 11/23/16 [History] [place]-3/DHA/Epa/Fish Oil [[place]-3 Fish Oil 1,000 MG Sfgl] 1 tab PO DAILY [History] Omeprazole 20 mg PO DAILY 11/23/16 [History] Vitamin B Complex [B Complex] 1 tab PO DAILY 11/23/16 [History] Zinc 1 tab PO DAILY 11/23/16 [History] Acetaminophen/oxyCODONE [Percocet 325-5 MG] 1 tab PO Q6HR #90 tablet 12/31/16 [ Rx] Diazepam [Valium] 5 mg PO Q6H PRN #20 tablet 12/31/16 [Rx] Ondansetron HCl [Zofran] 4 mg PO Q8H PRN #20 ml 12/31/16 [Rx] Sennosides [Senna] 8.6 mg PO BID #90 tablet 12/31/16 [Rx] Levofloxacin [Levaquin] 750 mg PO Q24H #14 tablet 01/07/17 [Rx] - Discharge Summary/Plan Comment DC Time >30 min.: Yes Discharge Summary/Plan Comment: At this time I did discuss the case with Dr. Cy Knowles. We have decided to transfer the patient to [facility]. We have got acceptance I the [facility]. We will send her up per ambulance and they will plan to repair her leak. She will follow-up with us as needed. - Patient Data Vitals - Most Recent: Last Vital Signs Temp 36.0 C 01/15/17 12:21 Pulse 88 01/15/17 12:21 Resp 16 01/15/17 12:21 BP 123/70 01/15/17 12:21 Pulse Ox 99 01/15/17 12:21 Weight - Most Recent: 171 lb 2 oz Med Orders - Current: Current Medications Discontinued Medications Bisacodyl (Dulcolax) 5 mg PO DAILY [facility] Citalopram Hydrobromide (Celexa) 10 mg PO DAILY [facility] Diazepam (Valium.) 10 mg PO BID PRN PRN Reason: Anxiety Docusate Sodium (Colace) 100 mg PO BID [facility] Hydroxyzine HCl (Vistaril) 100 mg IM Q6H PRN PRN Reason: Nausea/Vomiting Lactated Ringer's (Ringers, Lactated) 1,000 mls @ 125 mls/hr IV ASDIRECTED [facility] Last Admin: 01/15/17 14:28 Dose: 125 mls/hr Levofloxacin/Dextrose 750 mg/ (Premix) 150 mls @ 100 mls/hr IV Q24H [facility] Last Admin: 01/15/17 14:29 Dose: 100 mls/hr Magnesium Hydroxide (Milk Of Magnesia) 30 ml PO Q12H PRN PRN Reason: Constipation Ondansetron HCl (Zofran Odt) 4 mg PO Q6H PRN PRN Reason: Nausea able to take PO Oxycodone/Acetaminophen (Percocet 325-5 Mg) 1 tab PO Q4H PRN PRN Reason: Pain (moderate 4-6) Senna/Docusate Sodium (Senna Plus) 1 tab PO BID [facility] Sodium Chloride (Saline Flush) 10 ml FLUSH ASDIRECTED PRN PRN Reason: Keep Vein Open Zolpidem Tartrate (Ambien) 5 mg PO BEDTIME PRN PRN Reason: Sleep *Q Meaningful Use (DIS) - VTE *Q VTE Criteria *Q: - Stroke *Q Stroke Criteria *Q: - AMI *Q AMI Criteria *Q:
== END 2017-01-15 17:05 | DRG 58 ==
LOC: JP.MS 10:52
PROVIDERS: ADMIT Nurse Practitioner Family; ATTEND Nurse Practitioner Family
DX: G97.82 Other postprocedural complications and disorders of nervous system (principal); G96.0 Cerebrospinal fluid leak; Z98.1 Arthrodesis status; I10 Essential (primary) hypertension; Z87.891 Personal history of nicotine dependence; E87.6 Hypokalemia; Z88.0 Allergy status to penicillin
CPT/HCPCS: 36415; 80053; 85025; C1751; J1956; J7120

== ENCOUNTER 2019-04-15 07:17 | Day surgery (SDC) | payer BC ==
[2019-04-15] MEDS ORDERED: fentaNYL 100 MCG/2 ML SDV ONE (08:20)
[2019-04-15] MEDS ORDERED: Propofol 200 MG/20 ML SDV ONE (08:20)
[2019-04-15] MEDS ORDERED: Midazolam 1 MG/ML 2 ML SDV ONE (08:20)
[2019-04-15] MEDS ORDERED: Dextrose 5%-Lactated Ringers 1,000 ML IV SCH (08:30)
--- NOTE | 2019-04-21 14:42 | OR ---
DATE OF PROCEDURE: 04/15/2019 SURGEON: Evaristo Knowles MD PREOPERATIVE DIAGNOSIS: Indication for screening colonoscopy. POSTOPERATIVE DIAGNOSIS: A single polyp in the lower sigmoid colon with richard diverticulosis. OPERATIVE PROCEDURE: Flexible colonoscopy with polypectomy by snare technique. ANESTHESIA: IV sedation. INDICATIONS FOR PROCEDURE: This is a 68-year-old female who is now presenting for screening colonoscopy. The plan is to proceed with a colonoscopy with biopsies and/or polypectomy as indicated. Potential risks of the procedure including bleeding and perforation were discussed, and the patient wishes to proceed. DETAILS OF PROCEDURE: The patient was taken to the operating room and placed in a left lateral decubitus position. IV sedation was administered, after which the initial digital rectal exam was performed, it was unremarkable. Colonoscope was then passed into the rectum with retroflexion revealing uncomplicated hemorrhoidal columns. The scope was eventually passed to the level of the cecum. The prep was fairly good. There was some diverticulosis, most prominent at left colon, but to a lesser extent throughout the entire abdominal colon. This was otherwise unremarkable. A single small polyp, roughly around 4 mm in size, was identified at 20 cm. Otherwise, there were no areas of colitis and no additional polyps or signs of neoplasia. The polyp was encircled with a cautery snare and removed and sent for histologic evaluation. Good hemostasis was confirmed at the point of the cautery snare removal. The scope was then withdrawn the remainder of the distance of the colon and rectum and the procedure then concluded. Assuming that the polyp removed today is an adenomatous polyp, the next colonoscopy should be scheduled for roughly 3 years. Evaristo Knowles MD /[id number]
== END 2019-04-15 10:31 | disposition home or self-care (01) ==
LOC: JP.SDS 07:17
PROVIDERS: ATTEND Surgery
DX: Z12.11 Encounter for screening for malignant neoplasm of colon (principal); D12.5 Benign neoplasm of sigmoid colon; K57.30 Diverticulosis of large intestine without perforation or abscess without bleeding; I10 Essential (primary) hypertension; Z88.0 Allergy status to penicillin
CPT/HCPCS: 45385; 88305; J2250; J2704; J3010; J7121

== ENCOUNTER 2019-08-25 07:09 | Inpatient (IN) | payer BC ==
[2019-08-25] MEDS ORDERED: Propofol 200 MG/20 ML SDV ONE ×2 (07:17→08:00)
[2019-08-25] MEDS ORDERED: Midazolam 1 MG/ML 2 ML SDV ONE (07:18)
[2019-08-25] MEDS ORDERED: Povidone-Iodine 10% Soln 118.25 ML Bottle ONE (07:18)
[2019-08-25] MEDS ORDERED: fentaNYL 100 MCG/2 ML SDV ONE (07:18)
[2019-08-25] MEDS ORDERED: Lactated Ringers 1,000 ML IV SCH (08:00)
[2019-08-25] MEDS ORDERED: ceFAZolin 2 GM in Premix Bag 1 BAG IV ONE (08:00)
[2019-08-25] MEDS: Nozin Nasal Sanitizer NASBOTH SCH ×2 (08:20→20:31)
[2019-08-25] MEDS ORDERED: Tranexamic Acid 800 MG in Sodium Chloride 0.9% 50 ML IV PRN (08:30)
[2019-08-25] MEDS ORDERED: Tranexamic Acid 800 MG in Sodium Chloride 0.9% 50 ML IV ONE (08:30)
[2019-08-25] MEDS ORDERED: Acetaminophen/HYDROcodone 325-5 MG Tab PO PRN (11:35)
[2019-08-25] MEDS ORDERED: Magnesium Hydroxide 400 MG/5 ML Susp 30 ML Cup PO PRN (11:35)
[2019-08-25] MEDS ORDERED: Ondansetron 4 MG/2 ML SDV IVPUSH PRN (11:35)
[2019-08-25] MEDS ORDERED: Morphine 2 MG/ML SYRINGE IVPUSH PRN (11:35)
[2019-08-25] MEDS ORDERED: Acetaminophen 325 MG Tab PO PRN (11:35)
[2019-08-25] MEDS: Sodium Chloride 0.9% 1,000 ML IV SCH ×2 (12:45→21:14)
[2019-08-25] MEDS: Acetaminophen/oxyCODONE 325-5 MG Tab PO PRN ×3 (12:53→21:16)
--- NOTE | 2019-08-25 13:16 | CR ---
Knee 1V or 2V Rt CLINICAL HISTORY: Postop FINDINGS: Patient is status post recent total knee arthroplasty. Components appear well seated. There is subcutaneous and intra-articular air. Impression status post recent total right knee arthroplasty
[2019-08-25] MEDS: ceFAZolin 1 GM in Premix Bag 1 BAG IV SCH ×2 (17:12→23:21)
[2019-08-25] MEDS: Docusate Sodium 100 MG Cap PO SCH (20:31)
[2019-08-25] MEDS: Aspirin 325 MG Tab.EC PO SCH (20:31)
[2019-08-26] MEDS: Acetaminophen/oxyCODONE 325-5 MG Tab PO PRN ×4 (01:56→21:58)
[2019-08-26] MEDS: Pantoprazole 40 MG Tab.CR PO SCH (07:08)
[2019-08-26] MEDS: Aspirin 325 MG Tab.EC PO SCH ×2 (08:33→21:59)
[2019-08-26] MEDS: Magnesium Oxide 400 MG Tab PO SCH (08:33)
[2019-08-26] MEDS: Vitamin B Complex Tab PO SCH (08:33)
[2019-08-26] MEDS: Gabapentin 100 MG Cap PO SCH (08:33)
[2019-08-26] MEDS: Hydrochlorothiazide/Triamterene 25-37.5 Tab PO SCH (08:33)
[2019-08-26] MEDS: Docusate Sodium 100 MG Cap PO SCH ×2 (08:34→21:59)
[2019-08-26] MEDS: LUTEIN 10 MG PO SCH (08:34)
[2019-08-26] MEDS: Lisinopril 2.5 MG Tab PO SCH (08:34)
[2019-08-26] MEDS: BIOTIN 1000 MCG PO SCH (08:34)
[2019-08-26] MEDS: Nozin Nasal Sanitizer NASBOTH SCH ×2 (08:34→21:58)
[2019-08-26] MEDS: ceFAZolin 1 GM in Premix Bag 1 BAG IV SCH (09:07)
[2019-08-26] MEDS: Ketorolac 30 MG/ML SDV IVPUSH SCH ×2 (12:50→18:50)
[2019-08-27] MEDS: Ketorolac 30 MG/ML SDV IVPUSH SCH ×4 (00:13→18:29)
[2019-08-27] MEDS: Acetaminophen/oxyCODONE 325-5 MG Tab PO PRN (03:55)
[2019-08-27] MEDS: Pantoprazole 40 MG Tab.CR PO SCH (07:50)
[2019-08-27] MEDS: Nozin Nasal Sanitizer NASBOTH SCH ×2 (08:44→21:08)
[2019-08-27] MEDS: Hydrochlorothiazide/Triamterene 25-37.5 Tab PO SCH (08:44)
[2019-08-27] MEDS: Vitamin B Complex Tab PO SCH (08:44)
[2019-08-27] MEDS: Aspirin 325 MG Tab.EC PO SCH ×2 (08:44→21:10)
[2019-08-27] MEDS: Magnesium Oxide 400 MG Tab PO SCH (08:44)
[2019-08-27] MEDS: Lisinopril 2.5 MG Tab PO SCH (08:45)
[2019-08-27] MEDS: BIOTIN 1000 MCG PO SCH (08:45)
[2019-08-27] MEDS: Gabapentin 100 MG Cap PO SCH (08:45)
[2019-08-27] MEDS: LUTEIN 10 MG PO SCH (08:45)
[2019-08-27] MEDS: Docusate Sodium 100 MG Cap PO SCH ×2 (08:45→21:10)
[2019-08-28] MEDS: Acetaminophen/oxyCODONE 325-5 MG Tab PO PRN (01:21)
[2019-08-28] MEDS: Ketorolac 30 MG/ML SDV IVPUSH SCH ×2 (01:22→08:03)
[2019-08-28] MEDS: Pantoprazole 40 MG Tab.CR PO SCH (08:03)
[2019-08-28] MEDS: Hydrochlorothiazide/Triamterene 25-37.5 Tab PO SCH (10:07)
[2019-08-28] MEDS: Vitamin B Complex Tab PO SCH (10:07)
[2019-08-28] MEDS: Magnesium Oxide 400 MG Tab PO SCH (10:07)
[2019-08-28] MEDS: Lisinopril 2.5 MG Tab PO SCH (10:08)
[2019-08-28] MEDS: Gabapentin 100 MG Cap PO SCH (10:08)
[2019-08-28] MEDS: LUTEIN 10 MG PO SCH (10:08)
[2019-08-28] MEDS: Docusate Sodium 100 MG Cap PO SCH (10:08)
[2019-08-28] MEDS: Nozin Nasal Sanitizer NASBOTH SCH (10:08)
[2019-08-28] MEDS: BIOTIN 1000 MCG PO SCH (10:08)
[2019-08-28] MEDS: Aspirin 325 MG Tab.EC PO SCH (10:08)
--- NOTE | 2019-09-02 11:36 | OR ---
DATE OF PROCEDURE: 08/25/2019 SURGEON: Ceasar Mojica MD PREOPERATIVE DIAGNOSIS: Osteoarthritis, right knee. POSTOPERATIVE DIAGNOSIS: Osteoarthritis, right knee. PROCEDURE: Right total knee arthroplasty using [employer] components with a size 4 femur, a C tibia, an 11 mm polyethylene, and a 32 mm patella. ANESTHESIA: Spinal with sedation. INDICATIONS: Carmen is a very pleasant 68-year-old female with a history of progressive right knee pain for the past couple of years. She has failed conservative treatment and now presents for a right total knee arthroplasty. The risks, benefits, and potential complications of the procedure were discussed. DESCRIPTION OF PROCEDURE: After adequate anesthesia was obtained, the patient was placed supine with a tourniquet about the right upper thigh. The right leg was prepped and draped in a sterile fashion. The leg was exsanguinated and the tourniquet inflated to 300 mmHg pressure. A longitudinal incision was made over the anterior aspect of the knee and carried down to the subcutaneous tissues, and a medial parapatellar arthrotomy was performed. The posterior aspect of the patella was exposed and held with a clamp, and the posterior patella was resected with an oscillating saw. The anterior horn of the medial meniscus and a portion of the fat pad were excised. The intramedullary canal of the femur was drilled, and an intramedullary guide was placed. The guide was secured to the distal femur, and the femoral cut was made. The guide was removed. Attention was turned to the tibia, where the extramedullary alignment jig was aligned and secured. The proximal tibia was resected with an oscillating saw. The remaining medial and lateral menisci were excised. Attention was then returned to the femur, which was sized to a 4 component and a 4 cutting jig secured to the distal femur, and the remaining femoral cuts were made, including an intercondylar notch cut for a posterior cruciate-sacrificing component. The tibia was then sized to a C component, the base plate was secured, and the remaining tibial preparation was completed. The 10 mm insert was placed. The knee was taken through a range of motion and found to have a slight laxity, and the 11 mm viky was then inserted, which provided better balance. The patella was resurfaced with a 32 mm button. The components were then removed. The knee was thoroughly irrigated with pulse lavage. The bone surfaces were dried, and the components were cemented in place. Excess cement was removed, and the knee was held in full extension with the 11 mm insert until the cement had cured. It was again taken through a range of motion, and flexion and extension gaps were confirmed. The trial was removed, and the final polyethylene was snapped into position. The knee was then thoroughly irrigated with pulse lavage, followed by dilute Betadine solution and pulse lavage once again. The capsule was closed using #2 Ethibond in an interrupted fashion. The skin was closed with 2-0 Vicryl and a running 3-0 Monocryl. Steri-Strips were applied. A light compressive dressing was then placed. The patient tolerated the procedure well. There were no complications. She was taken from the operating room in stable condition. Ceasar Mojica MD /[id number] MTDD
== END 2019-08-28 10:47 | disposition home health service (06) | DRG 302 ==
LOC: JP.SDS 07:09 → JP.MS 11:42 → JP.SDS 08-26 11:59 → JP.MS 08-26 12:00
PROVIDERS: ADMIT Specialist; ATTEND Specialist
PROC: 0SRC0J9 Replacement of Right Knee Joint with Synthetic Substitute, Cemented, Open Approach (ICD-10-PCS; principal; 2019-08-26)
DX: M17.11 Unilateral primary osteoarthritis, right knee (principal); I10 Essential (primary) hypertension; Z79.899 Other long term (current) drug therapy; Z20.828 Contact with and (suspected) exposure to other viral communicable diseases
CPT/HCPCS: 27447; 36415; 73560-26-RT; 73560-RT; 85027; 86850; 86900; 86901; 97110-GP; 97116-GP; 97161-GP; 97165-GO; 97530-GP; 97535-GP; A9270-GY; C1713; C1776; J0690; J1885; J2250; J2270; J2704; J3010; J7030; J7050; J7120; U0002

== ENCOUNTER 2021-04-27 07:28 | Inpatient (IN) | payer MEDICARE, BC ==
[2021-04-27] MEDS ORDERED: Lactated Ringers 1,000 ML IV SCH (08:00)
[2021-04-27] MEDS: Nozin Nasal Sanitizer NASBOTH SCH ×3 (08:08→21:57)
[2021-04-27] MEDS ORDERED: Midazolam 1 MG/ML 2 ML SDV ONE (08:12)
[2021-04-27] MEDS ORDERED: fentaNYL 100 MCG/2 ML SDV ONE (08:12)
[2021-04-27] MEDS ORDERED: Propofol 200 MG/20 ML SDV ONE (08:13)
[2021-04-27] MEDS ORDERED: Ondansetron 4 MG/2 ML SDV ONE (09:10)
[2021-04-27] MEDS ORDERED: Rocuronium 50 MG/5 ML Vial ONE (09:10)
[2021-04-27] MEDS ORDERED: Dexamethasone 4 MG/ML SDV ONE (09:10)
[2021-04-27] MEDS ORDERED: Glycopyrrolate 0.2 MG/ML 5 ML MDV ONE (09:10)
[2021-04-27] MEDS ORDERED: Succinylcholine 200 MG/10 ML MDV ONE (09:10)
[2021-04-27] MEDS ORDERED: Neostigmine Methylsulfate 1 MG/ML 5 ML Syringe ONE (09:10)
[2021-04-27] MEDS ORDERED: ceFAZolin 2 GM in Premix Bag 1 BAG IV ONE (10:00)
[2021-04-27] MEDS ORDERED: fentaNYL 250 MCG/5 ML SDV ONE (11:16)
[2021-04-27] MEDS ORDERED: Lactated Ringers 1,000 ML ONE (12:43)
[2021-04-27] MEDS ORDERED: Ondansetron 4 MG/2 ML SDV IVPUSH PRN (13:31)
[2021-04-27] MEDS ORDERED: oxyCODONE 5 MG Tab PO PRN (13:31)
[2021-04-27] MEDS ORDERED: traMADol 50 MG Tab PO PRN (13:31)
[2021-04-27] MEDS ORDERED: HYDROmorphone 0.5 MG/0.5 ML Syringe IVPUSH PRN (13:31)
[2021-04-27] MEDS ORDERED: Acetaminophen 500 MG Tab PO PRN (13:31)
[2021-04-27] MEDS ORDERED: Morphine 2 MG/ML SYRINGE IVPUSH ONE (14:02)
[2021-04-27] MEDS: Ketorolac 30 MG/ML SDV IVPUSH SCH ×2 (15:06→22:24)
[2021-04-27] MEDS: OMEPRAZOLE 20MG CAP (PTOM) PO SCH (15:45)
[2021-04-27] MEDS: ceFAZolin 1 GM in Premix Bag 1 BAG IV SCH (17:10)
[2021-04-27] MEDS: Sodium Chloride 0.9% 1,000 ML IV SCH (17:10)
[2021-04-27] MEDS: oxyCODONE 5 MG Tab PO PRN (17:45)
[2021-04-27] MEDS ORDERED: Nozin Nasal Sanitizer NASBOTH SCH (21:00)
[2021-04-27] MEDS: Gabapentin 100 MG Cap (PTOM) PO SCH (21:59)
[2021-04-27] MEDS: Docusate Sodium 100 MG Cap PO SCH (21:59)
[2021-04-28] MEDS: Sodium Chloride 0.9% 1,000 ML IV SCH (01:31)
[2021-04-28] MEDS: oxyCODONE 5 MG Tab PO PRN (01:44)
[2021-04-28] MEDS: ceFAZolin 1 GM in Premix Bag 1 BAG IV SCH ×2 (01:45→09:24)
[2021-04-28] MEDS ORDERED: Acetaminophen 500 MG Tab PO SCH (07:00)
[2021-04-28] MEDS ORDERED: Pantoprazole 40 MG Tab.CR PO SCH (07:30)
[2021-04-28] MEDS: OMEPRAZOLE 20MG CAP (PTOM) PO SCH (07:43)
[2021-04-28] MEDS ORDERED: Benzocaine/Cetylpyridinium/Menthol Lozenge MUCMEM PRN (08:26)
[2021-04-28] MEDS ORDERED: LUTEIN 10 MG PO SCH (09:00)
[2021-04-28] MEDS ORDERED: Non-Formulary Medication 1 Each (Magnesium [Magnesium] 250 MG Tablet) PO SCH (09:00)
[2021-04-28] MEDS: Nozin Nasal Sanitizer NASBOTH SCH ×2 (09:21→20:20)
[2021-04-28] MEDS: Acetaminophen 500 MG Tab PO SCH ×3 (09:21→19:26)
[2021-04-28] MEDS: Celecoxib 200 MG Cap PO SCH ×2 (09:21→20:20)
[2021-04-28] MEDS: Docusate Sodium 100 MG Cap PO SCH ×2 (09:22→20:20)
[2021-04-28] MEDS: Enoxaparin 30 MG/0.3 ML Syringe SUBCUT SCH (09:22)
[2021-04-28] MEDS: LISINOPRIL 2.5 MG PO SCH (09:23)
[2021-04-28] MEDS: Magnesium Oxide 400 MG Tab PO SCH (09:23)
[2021-04-28] MEDS: Hydrochlorothiazide/Triamterene 25-37.5 Tab (PTOM) PO SCH (09:23)
[2021-04-28] MEDS: Gabapentin 100 MG Cap (PTOM) PO SCH (20:20)
[2021-04-28] MEDS ORDERED: LATANOPROST 0.005% EYEBOTH SCH (21:00)
[2021-04-29] MEDS: Acetaminophen 500 MG Tab PO SCH ×3 (02:04→13:00)
[2021-04-29] MEDS: OMEPRAZOLE 20MG CAP (PTOM) PO SCH (07:00)
[2021-04-29] MEDS: Nozin Nasal Sanitizer NASBOTH SCH (08:23)
[2021-04-29] MEDS: Enoxaparin 30 MG/0.3 ML Syringe SUBCUT SCH (08:24)
[2021-04-29] MEDS: LISINOPRIL 2.5 MG PO SCH (08:24)
[2021-04-29] MEDS: Celecoxib 200 MG Cap PO SCH (08:24)
[2021-04-29] MEDS: Hydrochlorothiazide/Triamterene 25-37.5 Tab (PTOM) PO SCH (08:24)
[2021-04-29] MEDS: Magnesium Oxide 400 MG Tab PO SCH (08:24)
[2021-04-29] MEDS: Docusate Sodium 100 MG Cap PO SCH (08:26)
== END 2021-04-29 14:55 | disposition home or self-care (01) | DRG 468 ==
LOC: JP.SDS 07:28 → JP.MS 13:31 → JP.SDS 04-28 08:21 → JP.SDSSCHI 04-28 08:21 → JP.MS 04-28 08:22
PROVIDERS: ADMIT Specialist; ATTEND Specialist
PROC: 0SPV0JZ Removal of Synthetic Substitute from Right Knee Joint, Tibial Surface, Open Approach (ICD-10-PCS; principal; 2021-04-27)
PROC: 0SRV0JZ Replacement of Right Knee Joint, Tibial Surface with Synthetic Substitute, Open Approach (ICD-10-PCS; 2021-04-27)
DX: T84.032A Mechanical loosening of internal right knee prosthetic joint, initial encounter (principal); M97.11XA Periprosthetic fracture around internal prosthetic right knee joint, initial encounter; F41.9 Anxiety disorder, unspecified; Y83.8 Other surgical procedures as the cause of abnormal reaction of the patient, or of later complication, without mention of misadventure at the time of the procedure; I10 Essential (primary) hypertension; K21.9 Gastro-esophageal reflux disease without esophagitis; E66.9 Obesity, unspecified; Z68.35 Body mass index [BMI] 35.0-35.9, adult; Z88.0 Allergy status to penicillin; Y92.89 Other specified places as the place of occurrence of the external cause
CPT/HCPCS: 36415; 73560-26-RT; 73560-RT; 80053; 85027; 86850; 86900; 86901; 87070; 87075; 87205; 97110-GP; 97162-GP; 97530-GP; 97535-GP; A9270-GY; C1713; C1776; J0330; J0690; J1100; J1650; J1885; J2250; J2270; J2405; J2704; J2710; J3010; J3490; J7030; J7120

== ENCOUNTER 2021-07-08 06:59 | Day surgery (SDC) | payer MEDICARE, BC ==
[~2021-07-08 06:59] MED LIST: Midazolam 1 MG/ML 2 ML SDV ONE; Propofol 200 MG/20 ML SDV ONE; fentaNYL 100 MCG/2 ML SDV ONE
[2021-07-08] MEDS ORDERED: Dextrose 5%-Lactated Ringers 1,000 ML IV SCH (07:30)
== END 2021-07-08 11:35 | disposition home or self-care (01) ==
LOC: JP.SDS 06:59
PROVIDERS: ATTEND Surgery
DX: K57.30 Diverticulosis of large intestine without perforation or abscess without bleeding (principal); K64.9 Unspecified hemorrhoids; I10 Essential (primary) hypertension; K21.9 Gastro-esophageal reflux disease without esophagitis; Z88.0 Allergy status to penicillin; Z86.010 Personal history of colon polyps; Z01.812 Encounter for preprocedural laboratory examination; Z87.891 Personal history of nicotine dependence; Z20.822 Contact with and (suspected) exposure to COVID-19
CPT/HCPCS: 45378; J2250; J2704; J3010; J7121; U0002